=== PATIENT | male | born 1965 | race Caucasian/White ===

== ENCOUNTER 2017-09-14 05:58 | Day surgery (SDC) | payer OTHER ==
[~2017-09-14 05:58] MED LIST: Buffered Lidocaine 0.9% SYRIN* 5 ML/SYR SYRINGE INTRADERM ONE
[2017-09-14] MEDS ORDERED: Dexamethasone IV* 4 MG/ML 1 ML (4 MG) IV SLOW PU ONE (06:00)
[2017-09-14] MEDS ORDERED: Famotidine IV* 10 MG/ML 2 ML (20 mg) IV ONE (06:00)
[2017-09-14] MEDS ORDERED: ceFAZolin 2 GM PREMIX (*) 2 GM/50 ML BAG IVPB ONE (06:14)
[2017-09-14] MEDS ORDERED: Dexamethasone IV* 4 MG/ML 1 ML (4 MG) ONE (06:14)
[2017-09-14] MEDS ORDERED: ceFAZolin 1 GM in Dextrose (*) 1 GM/50 ML BAG IVPB ONE (06:14)
[2017-09-14] MEDS ORDERED: Famotidine IV* 10 MG/ML 2 ML (20 mg) ONE (06:14)
[2017-09-14] MEDS ORDERED: Bupivacaine 0.5% SDV PF* 30ML VIAL ONE (07:12)
[2017-09-14] MEDS ORDERED: EPINEPHRINE 1 MG/ML 1 ML VIAL ONE (07:13)
[2017-09-14] MEDS ORDERED: fentaNYL* 50 MCG/ML 2 ML VIAL (100 MCG VIAL) ONE (07:14)
[2017-09-14] MEDS ORDERED: Midazolam* 1 MG/ML 5 ML VIAL (5 MG) ONE (07:14)
[2017-09-14] MEDS ORDERED: Ketorolac INJ* 30 MG/ML 1 ML VIAL ONE (07:15)
[2017-09-14] MEDS ORDERED: Chloroprocaine 2%* 20 ML VIAL ONE (07:15)
[2017-09-14] MEDS ORDERED: Propofol* 10 MG/ML 20 ML BTL IV PUSH ONE (07:15)
[2017-09-14] MEDS ORDERED: DiMENhydriNATE IV* 50 MG/ML VIAL IV PUSH PRN (08:16)
[2017-09-14] MEDS ORDERED: fentaNYL* 50 MCG/ML 2 ML VIAL (100 MCG VIAL) IV PRN (08:16)
[2017-09-14] MEDS ORDERED: oxyCODONE/Acetamin 5/325 MG* TAB PO PRN (08:16)
[2017-09-14] MEDS ORDERED: Naloxone* 0.4 MG/ML 1 ML VIAL IV PRN (08:16)
[2017-09-14] MEDS ORDERED: Ondansetron INJ* 2 MG/ML VIAL IV PRN (08:16)
[2017-09-14 10:15] VITALS: BP 120/75
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
== END 2017-09-14 10:17 | disposition home or self-care (01) ==
LOC: OR 05:58
PROVIDERS: ATTEND Orthopaedic Surgery
DX: S83.241A Other tear of medial meniscus, current injury, right knee, initial encounter (principal); I10 Essential (primary) hypertension; E78.00 Pure hypercholesterolemia, unspecified; X58.XXXA Exposure to other specified factors, initial encounter
CPT/HCPCS: J0690; J1100; J1885; J2250; J2400; J2704; J3010

== ENCOUNTER 2017-11-13 11:27 | Emergency (ER) | payer BC, OTHER ==
--- OUTSIDE RECORDS SUMMARY | 2017-11-13 11:36 | XMS REPORT ---
:1965 External Reference #:[id number] Author Organization [facility] Address [address] [place] [address] [address] [place] [address] Phone [phone] Care Team Providers Name Role Phone Dipesh Vaughan MD Primary Care Physician Unavailable Payers Type Date Identification Numbers Payment Provider Subscriber Commercial Policy Number: [id number] [facility] Alana Stuart PayID: [id number] [address] [place] [address] Workers Compensation Onset: 2017 Policy Number: State Insurance Alana Novak [id number] [facility] Narciso Group Number: [id number] [address] [place] [address] Group Name: [facility] [address] [id number] PayID: [place] [address] Problems Date Description Provider Status Onset: 05/05/2013 Acute myocardial infarction of Roland Rodriguez M.D., JOANNE, Active anterior wall [facility] Onset: 05/05/2013 Chronic ischemic heart disease Roland Rodriguez M.D., BELL, Active [facility] Onset: 05/05/2013 Hyperlipidemia Roland Rodriguez M.D., BELL, Active [facility] Onset: 05/05/2013 Essential hypertension Roland Rodriguez M.D., BELL, Active [facility] Onset: 06/19/2016 Obesity Roland Rodriguez M.D., BELL, Active [facility] Onset: 08/29/2017 Preoperative cardiovascular Roland Rodriguez M.D., BELL, Active examination [facility] Onset: 01/10/2017 Athscl heart disease of havasupai Roland Rodriguez M.D., FACC, Active coronary artery w/o ang pctrs [facility] Social History Type Date Description Comments Lives With Girlfriend Occupation 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 Use Never Smoked Cigarettes ETOH Use Occasionally consumes alcohol up to 2-5 drinks on days he does drink Smoking Patient has never smoked Recreational Drug Use Denies Drug Use Daily Caffeine Consumes on average 1 cup of regular coffee per day Exercise Type/Frequency Exercises regularly hockey once a week and softball during warmer months Allergies, Adverse Reactions, Alerts Date Description Reaction Status Severity Comments 05/05/2013 NKDA active Medications Medication Date Status Form Strength Qnty SIG Indications Ordering Provider Lisinopril 01/10/ Active Tablets 5mg 90tabs 1 by mouth Roland 2016 in in the , morning M.D., FACC, [facility] Nitrostat 05/19/ Active Tablets 0.4mg 25tabs one sl q5min Roland 2013 Sub up to 3 Stefek, doses as M.D., needed chest FACC, pain, if no [facility] relief call 911 Aspirin / Active Tablets 81mg 100tab 1 po qd Unknown 0000 s Rosuvastatin / Active Tablets 10mg take 1 Unknown Calcium 0000 tablet by mouth at bedtime Naproxen Sodium / Active Tablets 550mg 1 by mouth Unknown 0000 as needed Naproxen 09/25/ Hx Tablets 500mg 60tabs Take 1 S83.241D Colt 2017 - Tablet By F 11/05/ Mouth Twice Anaid, 2017 A Day as MD Needed Aspirin Ec 09/14/ Hx Tablets 325mg 24tabs take 1 tab Colt 2017 - DR by mouth F 10/22/ twice daily Anaid, 2017 x 14 days. MD with food. Oxycodone-Aceta 09/14/ Hx Tablets 5-325mg 15tabs 1-2 tablets Colt minophen 2017 - by mouth F 09/24/ every 4-6 Anaid, 2017 hours as MD needed for pain. Atorvastatin 07/18/ Hx Tablets 80mg 90tabs 1 tab by Roland Calcium 2016 - mouth every fek, 07/08/ day M.D., 2018 FACC, [facility] Clopidogrel 04/30/ Hx Tablets 75mg 90tabs 1 by mouth Roland Bisulfate 2014 - every day - fek, 05/08/ Has Been Off M.D., 2015 Since [facility], Colonoscopy [facility] In Early 05/11 Lisinopril / Hx Tablets 2.5mg 180tab 1 by mouth Roland 0000 - s twice a day shahriar, M.D., 2016 [facility] Atorvastatin / Hx Tablets 40mg 90tabs 1 by mouth Roland Calcium 0000 - every day shahriar, M.D., 2016 [facility] Clopidogrel / Hx Tablets 75mg 90tabs 1 po qd Unknown 0000 - 2014 Nitroglycerin / Hx prn Roland 0000 [facility] 2013 [facility] Vital Signs Date Vital Result Comment 11/06/2017 Height 74 inches 6'2" Weight 288.00 lb Heart Rate 66 /min BP Systolic Sitting 134 mmHg BP Diastolic Sitting 80 mmHg Respiratory Rate 16 /min Pain Level 3 BMI (Body Mass Index) 37.0 kg/m2 10/12/2017 Height 74 inches 6'2" Heart Rate 81 /min BP Systolic 138 mmHg BP Diastolic 80 mmHg Respiratory Rate 18 /min Body Temperature 98.4 F Pain Level 3 09/25/2017 Height 74 inches 6'2" Weight 279.00 lb Heart Rate 68 /min BP Systolic 140 mmHg BP Diastolic 80 mmHg Respiratory Rate 12 /min Pain Level 0 BMI (Body Mass Index) 35.8 kg/m2 08/29/2017 Height 74 inches 6'2" Weight 284.00 lb w/ shoes Heart Rate 82 /min reg BP Systolic Sitting 116 mmHg Lue lg cuff BP Diastolic Sitting 80 mmHg Lue lg cuff BP Systolic Standing 120 mmHg Lue BP Diastolic Standing 80 mmHg Lue Respiratory Rate 16 /min BMI (Body Mass Index) 36.5 kg/m2 Ejection Fraction 50-55% as of 04/2013 echo 08/23/2017 Height 74 inches 6'2" Weight 280.00 lb BP Systolic 122 mmHg BP Diastolic 86 mmHg Respiratory Rate 18 /min Body Temperature 97.4 F Pain Level 3 BMI (Body Mass Index) 35.9 kg/m2 07/09/2017 Height 74 inches 6'2" Weight 280.00 lb BP Systolic 117 mmHg BP Diastolic 82 mmHg Respiratory Rate 16 /min Pain Level 6 BMI (Body Mass Index) 35.9 kg/m2 01/10/2017 Height 74 inches 6'2" Weight 280.38 lb with shoes Heart Rate 56 /min sit and 60 stand BP Systolic Sitting 130 mmHg Rue lg cuff BP Diastolic Sitting 87 mmHg Rue lg cuff BP Systolic Standing 120 mmHg Rue lg cuff BP Diastolic Standing 88 mmHg Rue lg cuff Respiratory Rate 16 /min BMI (Body Mass Index) 36.0 kg/m2 Ejection Fraction 55-60% date 04/28/2013 ECHO 06/19/2016 Height 73.5 inches 6'1.50" Weight 277.00 lb w/ shoes Heart Rate 64 /min reg BP Systolic Sitting 130 mmHg Rue, lg cuff BP Diastolic Sitting 76 mmHg Rue, lg cuff BP Systolic Standing 130 mmHg Rue BP Diastolic Standing 74 mmHg Rue Respiratory Rate 16 /min BMI (Body Mass Index) 36.0 kg/m2 Ejection Fraction 55-60% as of 04/28/2013 echo 05/31/2015 Height 73.5 inches 6'1.50" Weight 244.00 lb Heart Rate 50 /min 56 BP Systolic Sitting 124 mmHg left arm, reg cuff BP Diastolic Sitting 84 mmHg left arm, reg cuff BP Systolic Standing 122 mmHg left arm, reg cuff BP Diastolic Standing 84 mmHg left arm, reg cuff Respiratory Rate 16 /min BMI (Body Mass Index) 31.8 kg/m2 Ejection Fraction 55-60% 04/28/13 06/04/2014 Height 73.5 inches 6'1.50" Weight 267.00 lb Heart Rate 50 /min 60 BP Systolic Sitting 104 mmHg right arm, large cuff BP Diastolic Sitting 64 mmHg right arm, large cuff BP Systolic Standing 110 mmHg right arm, large cuff BP Diastolic Standing 66 mmHg right arm, large cuff Respiratory Rate 16 /min BMI (Body Mass Index) 34.7 kg/m2 11/26/2013 Height 73.5 inches 6'1.50" Weight 256.00 lb Heart Rate 50 /min 62 BP Systolic Sitting 110 mmHg left arm, large cuff BP Diastolic Sitting 78 mmHg left arm, large cuff BP Systolic Standing 108 mmHg left arm, large cuff BP Diastolic Standing 80 mmHg left arm, large cuff Respiratory Rate 16 /min BMI (Body Mass Index) 33.3 kg/m2 05/19/2013 Height 73.5 inches 6'1.50" Weight 264.00 lb Heart Rate 5462 /min BP Systolic Sitting 120 mmHg right arm, large cuff BP Diastolic Sitting 82 mmHg right arm, large cuff BP Systolic Standing 110 mmHg right arm, large cuff BP Diastolic Standing 80 mmHg right arm, large cuff Respiratory Rate 14 /min BMI (Body Mass Index) 34.4 kg/m2 05/05/2013 Height 73.5 inches 6'1.50" Weight 265.00 lb Heart Rate 5660 /min BP Systolic Sitting 118 mmHg left arm, large cuff BP Diastolic Sitting 84 mmHg left arm, large cuff BP Systolic Standing 116 mmHg left arm, large cuff BP Diastolic Standing 84 mmHg left arm, large cuff Respiratory Rate 16 /min BMI (Body Mass Index) 34.5 kg/m2 Results Test Date Test Result H/L Range Note Laboratory test 09/14/2017 Surgical Pathology SEE RESULT BELOW 1 finding Lipid Profile 07/01/2014 Triglycerides 169 mg/dL 2, 3 (Trig/Chol/HDL) Cholesterol 148 mg/dL 2, 4 HDL Cholesterol 46.8 mg/dL 2, 5 LDL Cholesterol 67 mg/dL 2, 6 Laboratory test finding 07/01/2014 Alt 42 U/L 7-52 2, 7 Ast 23 U/L 13-39 2, 8 Lipid Profile (Trig/Chol/HDL) 07/02/2013 Triglycerides 106 mg/dL 9 Cholesterol 113 mg/dL 10 HDL Cholesterol 34.9 mg/dL 11 LDL Cholesterol 57 mg/dL 12 Laboratory test finding 07/02/2013 Alt 31 U/L 7-52 Ast 18 U/L 13-39 1 SEE RESULT BELOW Name: ALANA STUART : [address]: Colt Worrell MD Acct: [id number] Unit: [id number] AGE: 52 Location: OR Re09/14/17 SEX: M Status: JOANNE ROBERSON SPEC: [id number] GILBERTO: 09/14/17-[address] [facility] [address]: Colt Worrell MD REQ: [id number] RECD: 09/14/171055 STATUS: SOUT _ ORDERED: Decal, LEVEL 3 FINAL DIAGNOSIS Loose body, right knee, excision: -- Osteocartilaginous loose body. PRE-OPERATIVE DIAGNOSIS Other tear medial meniscus, current injury, right. GROSS DESCRIPTION The specimen is received in formalin labeled, Loose Body Right Knee, and consists of a 1.5 x 1.1 x 0.6 cm white-pink irregular bone fragment partially surfaced by white- pink fibromembranous tissue. Administrative Assistant Coordinator sections, one cassette following decalcification. Signed by and Reported on: Mariano Perkins MD [id number] END OF REPORT DEPARTMENT OF PATHOLOGY, [address] [place] [address] Mariano Perkins M.D. Director [facility] # [id number] 2 FASTING 3 Desirable <150 Borderline high 150-199 High 200-499 Very High >500 4 Desirable <200 Borderline high 200-239 High >239 5 Low <40 Desirable: 40-60 High: >60 6 Desirable: <100 mg/dL Near Optimal: 100-129 mg/dL Borderline High: 130-159 mg/dL High: 160-189 mg/dL Very High: >189 mg/dL 7 FASTING 8 FASTING 9 Desirable <150 Borderline high 150-199 High 200-499 Very High >500 10 Desirable <200 Borderline high 200-239 High >239 11 Low <40 Desirable: 40-60 High: >60 12 Desirable <100 Near Optimal 100-129 Borderline high 130-159 High 160-189 Very High >189 Procedures Date CPT Code Description Status 09/14/2017 99716 Arthroscopy,Knee,Meniscectomy Medial Or Lateral Completed 09/14/2017 52664 Arthroscopy,Knee,Meniscectomy Medial Or Lateral Completed 08/29/2017 65619 EKG Tracing & Interpretation Completed 07/09/201736629 Inject/Drain Joint/Bursa Major W/O US Completed 07/09/2017 98418 Inject/Drain Joint/Bursa Major W/O US Completed 01/10/2017 43276 EKG Tracing & Interpretation Completed 06/19/2016 96218 EKG Tracing & Interpretation Completed 05/31/2015 11756 EKG Tracing & Interpretation Completed 03/15/2015 55379 Treadmill Interp/Report Only Completed 03/15/2015 19531 Stress Test Supervsn W/Out I/R Completed 06/04/2014 06132 EKG Tracing & Interpretation Completed 11/26/2013 81383 EKG Tracing & Interpretation Completed 05/15/2013 39032 Stress Test Supervsn W/Out I/R Completed 05/15/2013 71184 Treadmill Interp/Report Only Completed 05/05/2013 63666 EKG Tracing & Interpretation Completed 04/28/2013 10481 ECHO Transthorasic Realtime 2D W Doppler & Color Flow Completed Hosp 04/28/2013 75869 EKG, Interpretation Only Completed 04/27/2013 76374 Left Heart Cath. Incl S/I Coronaries, Angio S/I V Gram Completed If Done 04/27/2013 56769 EKG, Interpretation Only Completed 04/27/2013 15462 Revascularization Acute Total/Subtotal Occlusion Completed 11/07/2007 63201 ECHO/Stress Completed 11/07/2007 12767 ECHO/Stress Completed 11/07/2007 50337 Stress Test Completed 11/07/2007 19100 Stress Test Completed 11/07/2007 05224 Stress Test Completed Encounters Type Date Location Provider CPT E/M Dx Office Visit 08/29/2017 [facility] Roland Rodriguez M.D., 74139 Z01.810 3:40p [facility], [facility] I25.10 I10 E78.5 S83.241D Office Visit 08/23/2017 8:00a [facility] 38600 S83.241D Of Antoinette Worrell MD S83.241D Office Visit 07/09/2017 1:30p [facility]t [place] 37735 S83.241A Of Antoinette Worrell MD S83.241A S83.241A Office Visit 01/10/2017 9:40a [facility] Marilin Rodriguez M.D., 65796 E78.5 [facility], [facility] I10 I25.10 Office Visit 06/19/2016 3:20p [facility] Marilin Rodriguez M.D., 50371 I25.10 [facility], [facility] E78.5 I10 E66.9 Office Visit 05/31/2015 3:20p [facility] Marilin Rodriguez M.D., 13408 I25.9 [facility], [facility] E78.5 I10 Office Visit 03/15/2015 12:19p [facility], Jorge Dunne, 02405 R07.9 Hospitalists Clarence I25.10 Office Visit 03/14/2015 12:17p [facility],pc Omar Fuchs M.D. 01471 R07.9 Hospitalists I25.10 Office Visit 06/04/2014 3:00p [facility] Marilin Rodriguez M.D., 21601 414.9 [facility], [facility] 272.4 401.9 Office Visit 11/26/2013 2:45p [facility] Marilin Rodriguez M.D., 18242 414.9 [facility], [facility] 272.4 401.9 Office Visit 05/19/2013 3:30p [facility] Marilin Rodriguez M.D., 02098 414.9 [facility], [facility] 272.4 401.9 Office Visit 05/05/2013 3:30p [facility] Marilin Rodriguez M.D., 30007 410.10 [facility], [facility] 414.9 272.4 401.9 Office Visit 04/29/2013 10:04a [facility] Roland Rodriguez M.D., 58293 410.10 [facility] 414.9 272.4 401.9 Office Visit 04/28/2013 9:24a [facility] Marilin Rodriguez M.D., 50388 410.10 [facility], [facility] 414.9 401.9 Office Visit 04/27/2013 9:23a [facility] Marilin Rodriguez M.D., 05443 786.59 [facility], [facility] 786.05 Plan of Care Future Appointment(s):01/10/2018 3:30 pm - Colt Worrell MD [facility]11/06/2017 - Colt Worrell, MDS83.241D Oth tear of medial meniscus, current injury, r knee, subsNew Therapy:Physical TherapyFollow up:Follow up: 2 kcjqabD99.41 Loose body in knee, right kneeM17.11 Unilateral primary osteoarthritis, right knee
[2017-11-13] MEDS ORDERED: Tetan/Diph/Pertus SYR(Tdap)* 0.5 ML SYR(BOOSTRIX) use SYR IM ONE (11:48)
--- NOTE | 2017-11-13 11:48 | UC ---
Laceration HPI - HPI Summary HPI Summary: 52 yo male presents with laceration to forehead. He tells me that he was trying to exercise and was on a trial run when he tripped and fell forward scraping his forehead against the gravel. No LOC. He did sustain a laceration to his forehead, but states no other injuries. He was ambulatory immediately following. He takes a daily ASA. Unsure date of last tetanus. Denies headache, dizziness, vision changes, or weakness. - History Of Current Complaint Chief Complaint: UCLaceration Stated Complaint: HEAD LAC Time Seen by Provider: 11/13/17 11:48 Hx Obtained From: Patient Laceration Location: Face Mechanism Of Injury: Blunt Trauma Onset/Duration: Sudden Onset Severity: Mild Pain Intensity: 1 Pain Scale Used: 0-10 Numeric - Allergies/Home Medications Allergies/Adverse Reactions: Allergies Allergy/AdvReac Type Severity Reaction Status Date / Time No Known Allergies Allergy Verified 11/13/17 11:44 Home Medications: Home Medications Naproxen Sodium [Naproxen 220 mg] 220 mg PO BID 11/13/17 [History Confirmed ] PMH/Surg Hx/FS Hx/Imm Hx Endocrine History: Dyslipidemia Cardiovascular History: Cardiac Disease, Hypertension Other History Of: Negative For: Anticoagulant Therapy - Surgical History Surgical History: Yes Surgery Procedure, Year, and Place: 2 CARDIAC STENTS - 04/2013. Lt TIB/FIB - W/ [facility], 1990 - Family History Known Family History: Positive: Cardiac Disease, Hypertension - Social History Occupation: Employed Full-time Lives: With Family Alcohol Use: Occasionally Alcohol Amount: 10 per week Substance Use Type: None Smoking Status (MU): Never Smoked Tobacco - Immunization History Most Recent Influenza Vaccination: never Most Recent Tetanus Shot: unknown Most Recent Pneumonia Vaccination: never Review of Systems Constitutional: Negative Skin: Other - Laceration forehead Eyes: Negative ENT: Negative Respiratory: Negative Cardiovascular: Negative Gastrointestinal: Negative Neurovascular: Negative Musculoskeletal: Negative Neurological: Negative Psychological: Negative All Other Systems Reviewed And Are Negative: Yes Physical Exam - Summary Physical Exam Summary: GENERAL: NAD. WDWN. No pain distress. SKIN: 2.5cm linear laceration to left side of forehead. HEENT: Head: No raccoon eyes or cruz's sign. Forehead lac NECK: Supple. Nontender. FROM. CHEST: No accessory muscle use. Breathing comfortably and in no distress. CV: Pulses intact. Brisk cap refill. MSK: FROM in B/L UEs and LEs with symmetric strength. NEURO: A&Ox3. 3 word recall, remote, recent memory, ability to follow 2-step directions, and attention intact. CN II XII grossly intact. [id number]-[id number] are intact. Gait with normal base. Romberg: maintains balance, no pronator drift. Normal speech. No facial drooping. PSYCH: Age appropriate behavior. Triage Information Reviewed: Yes Vital Signs: Initial Vital Signs Temp 97.6 F 11/13/17 11:39 Pulse 62 11/13/17 11:39 Resp 16 11/13/17 11:39 BP 162/111 11/13/17 11:39 Pulse Ox 96 11/13/17 11:39 Vital Signs Reviewed: Yes Laceration Repair - Laceration Repair 1 Description: Linear Laceration Size After Repair: Length (cm) - 2.5 Modified For Repair: No Anesthesia Used: 2.0% Lido Cleansing Completed Via Routine Prep: Yes Closure Material: Sutures - SIX Closure Method: Single Layer Suture Of: Skin Suture Type: Nylon - 6-0 Laceration Course/Dx - Course/Dx Course Of Treatment: A time out was performed, witnessed, and signed. The area was irrigated with 500mL sterile saline. 2mL of 2% lidocaine without epi was administered and good anesthetization was achieved. In the usual sterile fashion , SIX 6-0 nylon interrupted sutures were placed. Pt tolerated procedure well. tdap updated today - Differential Dx - Laceration/Wound Provider Diagnoses: Laceration forehead. Fall Discharge - Sign-Out/Discharge Documenting (check all that apply): Patient Departure All imaging exams completed and their final reports reviewed: No Studies - Discharge Plan Condition: Stable Disposition: HOME Patient Education Materials: Care For Your Stitches (DC), Laceration (ED) Referrals: Dipesh Vaughan MD [Primary Care Provider] - Additional Instructions: If you develop a fever, shortness of breath, chest pain, new or worsening symptoms - please call your PCP or go to the ED. Your blood pressure was high at todays visit. Please see your primary provider within 4 weeks for recheck and re-evaluation. 1) Please keep the area bandaged, clean, dry, and intact for the next 24- 48hours. 2) If you develop a fever, colored or thick discharge, increased pain or swelling - please call your PCP or go to the ED. 3) Please return in 5 days to have your SIX sutures removed. - Billing Disposition and Condition Condition: STABLE Disposition: Home
[2017-11-13] MEDS ORDERED: Lidocaine 2% PF * 5 ML VIAL INJ ONE (12:04)
[2017-11-13 12:31] VITALS: BP 140/75
== END 2017-11-13 12:55 | disposition home or self-care (01) ==
LOC: UCEAST 11:27
DX: S01.81XA Laceration without foreign body of other part of head, initial encounter (principal); W01.0XXA Fall on same level from slipping, tripping and stumbling without subsequent striking against object, initial encounter; Y93.02 Activity, running; Y92.89 Other specified places as the place of occurrence of the external cause; Z23 Encounter for immunization
CPT/HCPCS: 12011; 90715; 99211; G0463

== ENCOUNTER 2018-07-21 20:27 | Observation (INO) | payer BC ==
[2018-07-21] MEDS ORDERED: Aspirin 81 mg CHEW TAB* 81 MG TAB.CHEW PO ONE (21:34)
[2018-07-21] MEDS ORDERED: Lisinopril TAB* 10 MG PO ONE (21:36)
[2018-07-21] MEDS ORDERED: Nitroglycerin TAB 0.4 MG* 0.4 MG TAB SL ONE (21:39)
--- NOTE | 2018-07-21 21:40 | ED ---
HPI Cardiac - HPI Summary HPI Summary: Patient is a 53 y/o M presenting to ED with complaints of chest pain and SOB. Girlfriend, Manuela is present. He reports similar episodes of Sx while playing hockey around two weeks ago. He describes chest pain as a burning sensation at his chest which lasted around 10-15 minutes. He quit skating at the time and Sx went away. 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 Girlfriend notes he ate right before playing hockey around two weeks ago, which is atypical. Today, was playing hockey, Sx returned but appeared to be worse than previously. Sx onset around 1999 today, 07/21/18. When he stopped skating, chest pain had mostly disappeared. In room, he rates pain 7- 8/10 during episode, at present rates 2-3/10. Chest pain is similar to previously, patient describes it as a burning sensation. He notes chest tightness aggravated with deep breaths at present. He notes no "knot" in back at present as he had during previous HI, notes that present episode is somewhat different than when he had HI. No nausea, no calf pain, unknown if he was sweating atypically as he had been playing hockey. PMHx of HI. Patient is prescribed nitroglycerin but has yet to take it. He has not taken his lisinopril today. He never smoked, drinks occasionally, had none today, no substance usage. Patient is on lipitor, statin. FMHx of father due to cardiac disease. PSHx of cardiac stent x2, drug eluting stent, both at [facility]. PSHx of broken tib-fib repair, knee surgery August 2017. Patient is followed by label tacker Dr. Rodriguez. Pulse 67, o2 97, BP 151/101. PCP is Dr. Vaughan. Home medications and allergies are reviewed. Allergies Allergy/AdvReac Type Severity Reaction Status Date / Time No Known Allergies Allergy Verified 11/13/17 11:44 - History of Current Complaint Chief Complaint: EDChestPainROMI Stated Complaint: CHEST PAIN Time Seen by Provider: 07/21/18 21:24 Hx Obtained From: Patient Onset/Duration: Started Hours Ago - today's episode onset 1999, Started Weeks Ago - FIRST EPISODE AROUND TWO WEEKS AGO, Still Present Timing: Constant, Lasting Hours - today's episode onset 1999 Initial Severity: Severe Current Severity: Mild Pain Intensity: 3 Pain Scale Used: 0-10 Numeric - 3/10 in room Character: Burning, Tightness Aggravating Factor(s): Deep Breaths Alleviating Factor(s): Nothing Associated Signs and Symptoms: Positive: Chest Pain, Shortness of Breath, Diaphoresis - unsure. Negative: Nausea, Calf Pain/Swelling - Additional Pertinent History Primary Care Physician: SYLVESTER - Allergy/Home Medications Allergies/Adverse Reactions: Allergies Allergy/AdvReac Type Severity Reaction Status Date / Time No Known Allergies Allergy Verified 11/13/17 11:44 Home Medications: Home Medications Rosuvastatin Calcium 10 mg PO DAILY 07/21/18 [History Confirmed 07/21/18] PMH/Surg Hx/FS Hx/Imm Hx Endocrine/Hematology History: Denies: Hx Anticoagulant Therapy, Hx Blood Disorders, Hx Blood Transfusions, Hx Bone Marrow Disease, Hx Diabetes, Hx Systemic Lupus Erythematosus, Hx Sickle Cell Disease, Hx Thyroid Disease, Hx Anemia, Hx Unexplained Bleeding, Other Endocrine/Hematological Disorders Cardiovascular History: Reports: Hx Angina, Hx Angioplasty, Hx Coronary Artery Disease, Hx Deep Vein Thrombosis, Hx Hypercholesterolemia, Hx Hypertension - on meds, Hx Myocardial Infarction Denies: Hx Aneurysm, Hx Auto Implanted Cardiovert Defib, Hx Cardiac Arrest, Hx Cardiomegaly, Hx Congenital Heart Disease, Hx Congestive Heart Failure, Hx Embolism, Hx Hypotension, Hx Pacemaker/ICD, Hx Peripheral Vascular Disease, Hx Rheumatic Fever, Hx Syncope, Hx Valvular Heart Disease, Other Cardiovascular Problems/Disorders Respiratory History: Denies: Hx Asthma, Hx Chronic Bronchitis, Hx Chronic Obstructive Pulmonary Disease (COPD), Hx Cystic Fibrosis, Hx Lung Cancer, Hx Pleural Effusion, Hx Pneumonia, Hx Pulmonary Edema, Hx Pulmonary Embolism, Hx Seasonal Allergies, Hx Sleep Apnea, Other Respiratory Problems/Disorders GI History: Denies: Hx Cirrhosis, Hx Crohn's Disease, Hx Diverticulosis, Hx Gall Bladder Disease, Hx Gastroesophageal Reflux Disease, Hx Gastrointestinal Bleed, Hx Hiatal Hernia, Hx Irritable Bowel, Hx Jaundice, Hx Obstructive Bowel, Hx Ileostomy, Hx Pyloric Stenosis, Hx Ulcer, Other GI Disorders History: Denies: Hx Acute Renal Failure, Hx Benign Prostatic Hyperplasia, Hx Chronic Renal Failure, Hx Dialysis, Hx Kidney Infection, Hx Kidney Stones, Hx Renal Disease, Other Problems/Disorders Musculoskeletal History: Denies: Hx Arthritis, Hx Back Problems, Hx Bursitis, Hx Congenital Bone Abnormalities, Hx Fibromyalgia, Hx Gout, Hx Orthopedic Injury, Hx Osteoporosis, Hx Scoliosis, Hx Tendonitis, Other Musculoskeletal History Sensory History: Denies: Hx Cataracts, Hx Contacts or Glasses, Hx Eye Injury, Hx Eye Prosthesis, Hx Glaucoma, Hx Legally Blind, Hx Macular Degeneration, Hx Vision Problem, Hx Deafness, Hx Hearing Aid, Hx Hearing Problem, Other Sensory Impairments Opthamlomology History: Denies: Hx Cataracts, Hx Contacts or Glasses, Hx Eye Injury, Hx Eye Prosthesis, Hx Glaucoma, Hx Legally Blind, Hx Macular Degeneration, Hx Vision Problem, Other Sensory Impairments Neurological History: Denies: Hx Dementia, Hx Developmental Delay, Hx Headaches, Hx Migraine, Hx Nerve Disease, Hx Seizures, Hx Spinal Cord Injury, Hx Transient Ischemic Attacks (TIA), Other Neuro Impairments/Disorders Psychiatric History: Denies: Hx Anxiety, Hx Attention Deficit Hyperactivity Disorder, Hx Eating Disorder, Hx Depression, Hx Panic Disorder, Hx Post Traumatic Stress Disorder, Hx Inpatient Treatment, Hx Community Mental Health Tx, Hx Schizophrenia, Hx Bipolar Disorder, Hx Suicide Attempt, Hx of Violent Episodes Against Others, Hx Substance Abuse, Other Psychiatric Issues/Disorders - Surgical History Surgery Procedure, Year, and Place: 2 CARDIAC STENTS - 04/2013. Lt TIB/FIB - W/ [facility], 1990 Hx Anesthesia Reactions: No Infectious Disease History: No Infectious Disease History: Denies: Hx Clostridium Difficile, Hx Hepatitis, Hx Human Immunodeficiency Virus (HIV), Hx of Known/Suspected MRSA, Hx Shingles, Hx Tuberculosis, Hx Known/ Suspected VRE, Hx Known/Suspected VRSA, History Other Infectious Disease, Traveled Outside the [place] in Last 30 Days - Family History Known Family History: Positive: Cardiac Disease, Hypertension - Social History Alcohol Use: Occasionally Alcohol Amount: 10 per week Substance Use Type: Reports: None Smoking Status (MU): Never Smoked Tobacco Review of Systems Positive: Skin Diaphoresis - unsure as he was playing hockey Positive: Chest Pain Positive: Shortness Of Breath Negative: Nausea Musculoskeletal: Other - NEGATIVE - CALF PAIN All Other Systems Reviewed And Are Negative: Yes Physical Exam - Summary Physical Exam Summary: Appearance: Well-appearing, minimal pain distress, well-nourished Skin: Warm, color reflects adequate perfusion, dry Head: Normal Head/Face inspection, atraumatic Eyes: Conjunctiva clear ENT: Normal inspection Neck: Supple, no nodes, no JVD Respiratory: Lungs clear, normal breath sounds, no respiratory distress Cardio: RRR, No murmur, pulses normal, brisk capillary refill Abdomen: Soft, nontender Bowel sounds: Present Musculoskeletal: Strength Intact/ROM intact, no calf tenderness, no edema. Psychological: Normal Neuro: Alert, muscle tone normal, no focal deficit Triage Information Reviewed: Yes Vital Signs On Initial Exam: Initial Vitals Temp Pulse Resp BP Pulse Ox 97.4 F 68 20 172/104 95 07/21/18 20:28 07/21/18 20:28 07/21/18 20:28 07/21/18 20:28 07/21/18 20:28 Vital Signs Reviewed: Yes Diagnostics - Vital Signs Vital Signs Temp Pulse Resp BP Pulse Ox 07/21/18 20:28 97.4 F 68 20 172/104 95 - Laboratory Lab Statement: Any lab studies that have been ordered have been reviewed, and results considered in the medical decision making process. - Radiology CXR Radiology Interpretation Completed By: ED Physician Summary of Radiographic Findings: No acute disease, pending official report. - EKG 2033 Cardiac Rate: NL - rate of 67 BPM EKG Rhythm: Sinus Rhythm Ectopy: None EKG Comparison: No Significant Change - no significant change from 04/29/13. Summary of EKG Findings: EKG showed sinus rhythm with rate of 67 BPM, nml AVIVCT , nml QTc, no ectopy, coved ST segments in leads 2, 3, aVF, no significant change from 04/29/13. 2233 Cardiac Rate: Bradycardia - rate of 59 BPM EKG Rhythm: Sinus Bradycardia ST Segment: Non-Specific Ectopy: None EKG Comparison: No Significant Change - compared to EKG done earlier today Summary of EKG Findings: Second EKG showed sinus bradycardia with rate of 59 BPM , nml AVIVCT, nml QTc, no ectopy, coved ST segments in leads 2, 3, aVF, no significant change compared to EKG done earlier today 07/21/18 Re-Evaluation - Re-Evaluation First Eval Re-Evaluation Time: 22:15 Comment: Discussed admission with patient, he is agreeable with this. Disposition - Course Course Of Treatment: Patient is a 53 y/o M presenting to ED with complaints of chest pain and SOB. Girlfriend, Manuela is present. He reports similar episodes of Sx while playing hockey around two weeks ago. He describes chest pain as a burning sensation at his chest which lasted around 10-15 minutes. He quit skating at the time and Sx went away. 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 Girlfriend notes he ate right before playing hockey around two weeks ago, which is atypical. Today, was playing hockey, Sx returned but appeared to be worse than previously. Sx onset around 1999 today, 07/21/18. When he stopped skating, chest pain had mostly disappeared. In room, he rates pain 7-8/10 during episode, at present rates 2-3/ 10. Chest pain is similar to previously, patient describes it as a burning sensation. He notes chest tightness aggravated with deep breaths at present. He notes no "knot" in back at present as he had during previous HI, notes that present episode is somewhat different than when he had HI. No nausea, no calf pain, unknown if he was sweating atypically as he had been playing hockey. PMHx of HI. Patient is prescribed nitroglycerin but has yet to take it. He has not taken his lisinopril today. He never smoked, drinks occasionally, had none today , no substance usage. Patient is on lipitor, statin. FMHx of father due to cardiac disease. PSHx of cardiac stent x2, drug eluting stent, both at [facility]. PSHx of broken tib-fib repair, knee surgery August 2017. Patient is followed by label tacker Dr. Rodriguez. On physical exam, patient is well appearing, minimal pain distress. EKG showed sinus rhythm with rate of 67 BPM, nml AVIVCT, nml QTc , no ectopy, coved ST segments in leads 2, 3, aVF, no significant change from 04/29/13. CXR showed NAD. Labs showed MCH 32, creatinine 1.19, glucose 101, lactic acid 0.7, trop 0.03. During ED course, patient received prinivil 5 mg PO ED ONCE, ASA 324 mg PO ONCE. Patient's case was discussed with Dr. Flores, Dr. Flores accepts for admission. Patient is agreeable with this. Second EKG showed sinus bradycardia with rate of 59 BPM, nml AVIVCT, nml QTc, no ectopy, coved ST segments in leads 2, 3, aVF, no significant change from 04/29/13. - Diagnoses Provider Diagnoses: Chest pain, Unstable angina - Physician Notifications Discussed Care Of Patient With: Rupa Flores Time Discussed With Above Provider: 21:59 Instructed by Provider To: Other - 2158 - Patient's case was discussed with Dr. Flores, Dr. Flores accepts for admission. Discharge - Sign-Out/Discharge Documenting (check all that apply): Patient Departure - admit Patient Received Moderate/Deep Sedation with Procedure: No - Discharge Plan Condition: Good Disposition: ADMITTED TO [facility] Referrals: Dipesh Vaughan MD [Primary Care Provider] - - Attestation Statements Document Initiated by Scribe: Yes Documenting Scribe: SÁNCHEZ ALMAZAN Provider For Whom Scribe is Documenting (Include Credential): SYDNIE BORGES MD Scribe Attestation: SÁNCHEZ Palmer, scribed for SYDNIE BORGES MD on 07/21/18 at 2251. Status of Scribe Document: Ready
[2018-07-21 21:42] LABS: ABS Basophils 0.1 10^3/ul (0-0.2); ABS Eosinophils 0.4 10^3/ul (0-0.6); ABS Lymphocytes 1.8 10^3/ul (1.0-4.8); ABS Monocytes 0.6 10^3/ul (0-0.8); ABS Neutrophils 6.8 10^3/ul (1.5-7.7); ABS Nucleated RBC 0 10^3/ul; Eosinophil % 3.9 %; Hematocrit 46 % (36-46); Hemoglobin 15.9 g/dL (14.0-18.0); Lymphocyte % 18.9 %; Mean Corpuscular HGB Conc 34 g/dL (31-36); Mean Corpuscular Hemoglobin 32 pg (27-31); Mean Corpuscular Volume 92 fL (80-94); Mean Platelet Volume 7.4 fL (7.4-10.4); Nucleated Red Blood Cells % 0.2; Platelet Count 194 10^3/uL (150-450); Red Blood Count 5.03 10^6 /uL (4.18-5.48); Red Cell Distribution Width 14 % (10.5-15); White Blood Count 9.7 10^3/uL (3.5-10.8)
[2018-07-21 21:57] LABS: Albumin 4.6 g/dL (3.2-5.2); Albumin/Globulin Ratio 2.1 (1-3); BUN/Creatinine Ratio 10.1 (8-20); Calcium 9.3 mg/dL (8.6-10.3); EGFR African American 76.8 (>60); EGFR Non-African American 63.5 (>60); Globulin 2.2 g/dL (2-4); Potassium 3.9 mmol/L (3.5-5.0); Total Bilirubin 0.4 mg/dL (0.2-1.0); Total Protein 6.8 g/dL (6.4-8.9)
[2018-07-21 21:58] LABS: Troponin I 0.03 ng/mL (<0.04)
[2018-07-21] MEDS ORDERED: Acetaminophen TAB* 325 MG PO PRN (22:08)
[2018-07-21] MEDS ORDERED: Lisinopril TAB* 5 MG PO ONE (22:19)
[2018-07-21] MEDS ORDERED: Enoxaparin(*) 40 MG/0.4 ML SYR SUBCUT SCH (23:00)
[2018-07-21] MEDS ORDERED: Nitroglycerin TAB 0.4 MG* 0.4 MG TAB SL PRN (23:15)
[2018-07-21] MEDS ORDERED: Atorvastatin* 40 MG TAB PO ONE (23:16)
[2018-07-22 00:31] LABS: Troponin I 0.05 ng/mL (<0.04)
--- NOTE | 2018-07-22 02:56 | HP ---
CC: Dr. Vaughan* HISTORY AND PHYSICAL: DATE OF ADMISSION: 07/21/18 PROVIDER: Jacqueline Sánchez NP. PRIMARY CARE PROVIDER: Dr. Vaughan. ATTENDING PHYSICIAN WHILE IN THE HOSPITAL: Dr. Rupa Flores* (dictated by Jacqueline Sánchez NP). CHIEF COMPLAINT: Chest pain. HISTORY OF PRESENT ILLNESS: Mr. Stuart is a 53-year-old male with a past medical history of hypertension, ME with stenting in 2013, hyperlipidemia, who presented to the emergency room with complaints of chest tightness. The patient reports that he was playing ice hockey this evening and developed chest tightness and indigestion, reports that it was in the center of his chest, lasted about 20 minutes. The patient reports that during this episode of chest pain, he felt hot. He removed his helmet. He reports that he was diaphoretic at that time and is unsure if it was related to his chest pain. He also reports that 2 weeks prior, again when playing hockey, he developed an episode of chest pain, again lasting 20 minutes. At that time, he thought it was related to drinking ice water. The patient had an ME in 2013, and due to his concern of 2 episodes of chest pain in 2 weeks, he presented for further evaluation. 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 The patient denied any nausea or vomiting associated with the pain. Denied any radiation. He did report that the pain felt similar to the pain he had when he had his ME in 2013, though it did not radiate to the back this time. In 2014, the pain radiated to his back. Due to his chest pain, we are asked to see and evaluate him for admission. PAST MEDICAL HISTORY: 1. Hypertension. 2. ME with stenting in 2014. 3. Hyperlipidemia. PAST SURGICAL HISTORY: 1. Cardiac catheterization in 2013. 2. Knee surgery. 3. Tib-fib repair with ed placement. HOME MEDICATIONS: 1. Lisinopril 5 mg p.o. daily. 2. Rosuvastatin 10 mg p.o. daily. 3. Aspirin 81 mg p.o. daily. ALLERGIES: No known drug allergies. FAMILY HISTORY: Father had an ME and at the age of 50. No reported history of diabetes or cancers. SOCIAL HISTORY: Denies any tobacco, alcohol, or illicit drug use. 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 His significant other Manuela and his brother are his surrogate decision makers. He is a full code. REVIEW OF SYSTEMS: All pertinent positives were mentioned in the HPI. All others were negative. PHYSICAL EXAMINATION GENERAL: At this time, Mr. Stuart is a 53-year-old male he is alert and oriented, sitting on the stretcher in the emergency room. He does not appear to be in any acute distress. He is chest pain free at this time. VITAL SIGNS: Blood pressure 132/106, heart rate is 62, respirations are 23, O2 saturation is 97%, temperature is 97.4. HEENT: Head is atraumatic, normocephalic. Eyes: EOMs are intact. Sclerae anicteric, not pale. Oral mucosa appeared to be moist. NECK: Supple. LUNGS: Clear to auscultation bilaterally. No wheezes, rales, or rhonchi. CARDIAC: S1, S2. Regular rate and rhythm. No murmurs, rubs, or gallops. ABDOMEN: Soft and nontender. Bowel sounds are present x4. EXTREMITIES: He is able to move all 4 extremities. No clubbing or cyanosis. Pedal pulses are +2 bilaterally. Skin is intact. NEUROLOGIC: He is awake, alert, oriented x3. Speech is clear. Thought process intact. There are no gross focal deficits. PSYCH: The patient is alert and oriented x3. He is calm and cooperative. LABORATORY DATA AND DIAGNOSTIC STUDIES: WBCs are 9.7, RBCs 5.03, hemoglobin 15.9, hematocrit is 46, platelet count is 194. Sodium 139, potassium 3.9, chloride 106, carbon dioxide of 26, anion gap of 7, BUN is 12, creatinine is 1.19, glucose is 101, lactic acid 0.7, calcium 9.3, AST 26, ALT 43, alkaline phosphatase is 62. Initial troponin was 0.03, second troponin is due at 2359. EKG: Initial EKG at [address] elevation in lead 2 and lead 3, avf and P-wave inversions in 2, 3, aVF, V2, V3, 4, 5, and 6. The P-wave inversions appeared to be consistent with prior EKGs. He does have some chronic minimal ST elevation in 2, 3, and aVF in prior EKGs but it does appear to be more pronounced. Repeat EKG did show ST segments in leads 2, 3 and AVF closer to baseline Chest x-ray is pending. ASSESSMENT AND PLAN: Mr. Stuart is a 53-year-old male with a past medical history significant for coronary artery disease with stent placement in 2013 after a myocardial infarction, hypertension, hyperlipidemia, who presented to the emergency room after he felt chest pain while playing ice hockey this evening. He is currently chest pain free. He will be admitted under observation for, 1. Chest pain. We will admit him to rule out acute coronary syndrome. He does have some ST changes in leads 2, 3, and aVF. I did contact Dr. Madrigal and had him review the EKGs as well, who has recommended that the patient have a stress test. The patient received aspirin 324 mg in the emergency room and lisinopril as he was hypertensive on admission. He took his rosuvastatin today 10 mg. We will continue to trend his troponin q.3 hours x2. He will get a repeat EKG in the a.m. I will place him on telemetry monitoring overnight. The patient was instructed to inform nursing staff with any development of further chest pain. His DEDRA score is 4 giving him a 20% risk of all-cause mortality at 14 days of recurrent ischemia requiring urgent revascularization. I will order a nuclear exercise stress test for tomorrow. Should his troponin elevate, we will give him a dose of full- strength Lovenox, and could consider a consultation to Cardiology. I will hold off on a beta heber at this time as the patient heart rate is in the mid 50's consistently. 2. Hypertension. I will continue him on his lisinopril as previously prescribed. 3. Hyperlipidemia. He will continue on rosuvastatin as previously prescribed. 4. Code status: He is full code. 5. Fluid, electrolytes, and nutrition: He can have heart healthy, decaf okay diet. 6. DVT prophylaxis: I will give him Lovenox subcu. TIME SPENT: Time spent on this admission was approximately 60 minutes, greater than half that time was spent at the bedside reviewing events leading thus far to his hospitalization, performing my physical exam, and reviewing my plan of care. I have discussed this with my attending, Dr. Rupa Flores, and she is in agreement with my plan. JACQUELINE SÁNCHEZ, PROSTHETICS ASSISTANT [id number]/[facility] #: [id number] [facility]
[2018-07-22 03:24] LABS: ABS Basophils 0.1 10^3/ul (0-0.2); ABS Eosinophils 0.3 10^3/ul (0-0.6); ABS Lymphocytes 2.2 10^3/ul (1.0-4.8); ABS Monocytes 0.5 10^3/ul (0-0.8); ABS Neutrophils 4.8 10^3/ul (1.5-7.7); ABS Nucleated RBC 0 10^3/ul; Eosinophil % 4.2 %; Hematocrit 44 % (36-46); Hemoglobin 14.8 g/dL (14.0-18.0); Lymphocyte % 27.7 %; Mean Corpuscular HGB Conc 34 g/dL (31-36); Mean Corpuscular Hemoglobin 32 pg (27-31); Mean Corpuscular Volume 93 fL (80-94); Mean Platelet Volume 7.7 fL (7.4-10.4); Nucleated Red Blood Cells % 0; Platelet Count 182 10^3/uL (150-450); Red Blood Count 4.71 10^6 /uL (4.18-5.48); Red Cell Distribution Width 14 % (10.5-15); White Blood Count 7.8 10^3/uL (3.5-10.8)
[2018-07-22 03:39] LABS: Anion Gap 6 mmol/L (2-11); BUN/Creatinine Ratio 11.4 (8-20); Blood Urea Nitrogen 12 mg/dL (6-24); CO2 Carbon Dioxide 28 mmol/L (22-32); Calcium 8.7 mg/dL (8.6-10.3); Chloride 106 mmol/L (101-111); Cholesterol 134 mg/dL; EGFR African American 88.7 (>60); EGFR Non-African American 73.3 (>60); Glucose 101 mg/dL (70-100); HDL Cholesterol 42.4 mg/dL; LDL Cholesterol 72 mg/dL; Magnesium 2.1 mg/dL (1.9-2.7); Potassium 3.8 mmol/L (3.5-5.0); Sodium 140 mmol/L (135-145); Triglycerides 98 mg/dL
[2018-07-22 03:57] LABS: Troponin I 0.07 ng/mL (<0.04)
--- NOTE | 2018-07-22 04:03 | PN ---
Hospitalist Progress Note Date of Service: 07/22/18 Pt admitted with unstable angina, trops continue to increase, no active CP at rest, will start heparin gtt for now and continue to trend
[2018-07-22] MEDS ORDERED: Heparin VIAL(*) 5000 UNITS/ML VIAL (FIVE THOUSAND) IV PRN (04:13)
[2018-07-22] MEDS ORDERED: Heparin DRIP 25,000 UNITS(*) 25,000 UNITS/500 ML BAG IV SCH (04:15)
[2018-07-22 07:33] LABS: Troponin I 0.05 ng/mL (<0.04)
--- NOTE | 2018-07-22 08:06 | PN ---
Subjective Date of Service: 07/22/18 Interval History: Pt is feeling well this AM. He has no CP at rest. He got up and walked to the bathroom this AM and did not develop any CP. No SOB. No other symptoms. He states the pain now is somewhat similar to what he experienced in the past. Objective Active Medications: Acetaminophen (Tylenol Tab*) 650 mg PO Q4H PRN PRN Reason: FEVER/PAIN Aspirin (Aspirin Ec Tab*) 81 mg PO QAM [facility] Heparin Sodium (Porcine) (Heparin Vial(*)) 0 units IV .PER PROTOCOL PRN PRN Reason: BOLUSES Last Admin: 07/22/18 04:48 Dose: 4,000 units Heparin Sodium/Dextrose (Heparin Drip 25,000 Units(*)) 25,000 units in 500 mls @ 0 mls/hr IV PER RATE [facility]; Protocol Last Admin: 07/22/18 04:48 Dose: 20 mls/hr Lisinopril (Prinivil Tab*) 5 mg PO QAM [facility] Nitroglycerin (Nitroglycerin Tab 0.4 Mg*) 0.4 mg SL Q5M PRN PRN Reason: PAIN - CHEST Vital Signs - 8 hr 07/22/18 07/22/18 07/22/18 00:06 00:36 00:38 Temperature 97.8 F Pulse Rate 62 59 60 Respiratory 15 14 18 Rate Blood Pressure 125/93 123/83 123/83 (mmHg) O2 Sat by Pulse 94 91 94 Oximetry 07/22/18 07/22/18 01:14 04:17 Temperature 97.8 F 97.4 F Pulse Rate 62 56 Respiratory 18 16 Rate Blood Pressure 126/75 110/66 (mmHg) O2 Sat by Pulse 96 94 Oximetry Oxygen Devices in Use Now: None Appearance: Middle aged male lying flat in bed, NAD Eyes: No Scleral Icterus Ears/Nose/Mouth/Throat: Mucous Membranes Moist Respiratory: Symmetrical Chest Expansion and Respiratory Effort, Clear to Auscultation Cardiovascular: NL Sounds; No Murmurs; No JVD, RRR, No Edema Abdominal: NL Sounds; No Tenderness; No Distention Extremities: No Clubbing, Cyanosis Skin: No Rash or Ulcers Neurological: Alert and Oriented x 3 Result Diagrams: 07/22/18 03:06 07/22/18 03:06 Assess/Plan/Problems-Billing Mr Stuart is a 53 yo M who has a h/o MS in 2014 s/p PCI who was playing hockey last evening when he developed about 20min of centrally located CP. He had an episode similar a couple weeks ago while playing hockey. - Patient Problems (1) Unstable angina Current Visit: Yes Status: Acute Code(s): I20.0 - UNSTABLE ANGINA SNOMED Code(s): 2519170 Comment: Pt with CP only with marked exertion (playing hockey) but he did have mildly elevated tropoinins up to 0.07. EKG with ST elevation in leads II, III, aVF but stable and similar to EKGs from 2014. Will plan on exercise nuclear stress test. Continue ASA, heparin drip, lipitor and lisinopril. Not on BBlocker as HR typically in the 60's. Await results of stress test. (2) HTN (hypertension) Current Visit: Yes Status: Acute Code(s): I10 - ESSENTIAL (PRIMARY) HYPERTENSION SNOMED Code(s): 84894087 Comment: BP is under good control. Continue lisinopril. (3) DVT prophylaxis Current Visit: Yes Status: Acute Code(s): XHJ8633 - SNOMED Code(s): 779770643 Comment: Heparin drip (4) Full code status Current Visit: Yes Status: Acute Code(s): Z78.9 - OTHER SPECIFIED HEALTH STATUS SNOMED Code(s): 583345276
[2018-07-22 08:16] VITALS: BP 119/74
[2018-07-22] MEDS ORDERED: Lisinopril TAB* 5 MG PO SCH (09:00)
[2018-07-22] MEDS ORDERED: Aspirin EC TAB* 81 MG TAB.EC PO SCH (09:00)
[2018-07-22] MEDS ORDERED: Atorvastatin* 20 MG TAB PO SCH (09:00)
[2018-07-22] MEDS ORDERED: Regadenoson* 0.4 MG/5 ML SYRINGE ONE (10:42)
--- NOTE | 2018-07-22 21:11 | CONS ---
CC: Dipesh Vaughan MD * CARDIAC CONSULTATION: DATE OF CONSULT: 07/22/18 INDICATION FOR CONSULTATION: Chest pain, coronary artery disease. HISTORY OF PRESENT ILLNESS: The patient is a 53-year-old gentleman with a history of coronary artery disease, history of stenting to his LAD in 2013, who comes to the hospital because of chest pain. The patient states that 2 weeks ago, he was playing ice hockey and had some chest pain. He sat down on the bench and these symptoms went away. 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 Last night, on Sunday night, he was playing hockey again. Again, had chest pain, felt burning in his chest, sat down on the bench. It about 20 minutes and then the symptoms started to go away. He decided to go the emergency room. On arrival to the emergency room, his EKG showed ectopic rhythm with minimal ST segment elevation. His initial troponin level was 0.03. His peak troponin level was 0.07. He had no chest pain overnight. The patient underwent a chemical nuclear stress test today, which demonstrated normal LV function, normal TID of 1.19. His nuclear images, which I reviewed personally, did have a small area of ischemia to his inferior wall that improved with rest images; however, his attenuation corrected images were completely normal, no evidence of ischemia or infarction. Again in speaking with the patient today, he has no symptoms. PAST MEDICAL HISTORY: Significant for coronary artery disease. He had a myocardial infarction in 2013. At that time, he received a stent to his LAD. At that time, he also had a 70% stenosis to his diagonal vessel of his LAD and 30% stenosis to his right coronary artery. Other past medical history: Obesity, hypertension, hyperlipidemia. MEDICATIONS: Outpatient medications: 1. Atorvastatin 80 mg a day. 2. Aspirin 81 mg a day. 3. Lisinopril 2.5 mg a day. 4. Nitroglycerin as needed. ALLERGIES: No known drug allergies. 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 He lives with his girlfriend. Denies tobacco use. He denies significant alcohol use. Drinks 1 cup of coffee a day. He exercises regularly. FAMILY HISTORY: No family history of early coronary artery disease. REVIEW OF SYSTEMS: Negative for fevers and chills. Negative for changes in bowel or bladder habits. Negative for changes in weight. PHYSICAL EXAM: Height is 6 feet 2 inches, weight 283 pounds. Temperature 97.8 , heart rate is 62, blood pressure 119/74, oxygen saturation 95% on room air. Sclerae are anicteric. Oropharynx is pink without erythema. Carotids are 2+ without bruits. JVD is normal. Thyroid is normal. Cardiac Exam: S1, S2 without any murmurs, rubs, or gallops. Lungs are clear to auscultation. Extremities show no edema. He has 2+ pulses throughout. The patient is awake, alert, and oriented. He moves all 4 extremities equally. LABORATORY STUDIES: CBC within normal limits. Chemistries within normal limits. Troponins as described above. EKG as described above. IMPRESSION: This is a 53-year-old gentleman with a history of known coronary artery disease. He was admitted to the hospital because of exertion-related chest pain. He did have a minimally elevated troponin level. His nuclear images show evidence of reversible perfusion in the inferior wall, but this is negated by the attenuation correction images. For now, my recommendation is that the patient continue on his current medications. The patient will be discharged on his aspirin, EULALIO inhibitor, and statin medication. The patient will be started on Plavix 75 mg a day. The patient will be started on lisinopril 12.5 mg b.i.d. I will see the patient in followup in 2 to 3 weeks. The patient was instructed that if he had any further chest pain, to contact my office or go directly to the emergency room. [id number]/[facility] #: [id number] KATYA
--- NOTE | 2018-07-22 21:11 | DS ---
CC: Dr. Love; Dr. Vaughan * DISCHARGE SUMMARY: DATE OF ADMISSION: 07/21/18 DATE OF DISCHARGE: 07/22/18 PRIMARY CARE PROVIDER: Dr. Vaughan. ORTHOPEDICS PEDIATRIC PHYSICIAN: Dr. Love. PRINCIPAL DIAGNOSIS: Chest pain - unclear if representing acute coronary syndrome. SECONDARY DIAGNOSES: 1. Coronary artery disease. 2. Hypertension. 3. Hyperlipidemia. DISCHARGE MEDICATIONS: 1. Lisinopril 5 mg p.o. daily. 2. Crestor 10 mg p.o. daily. 3. Aspirin 81 mg p.o. daily. 4. Nitroglycerin 0.4 mg SL q.5 minutes p.r.n. chest pain. 5. Metoprolol tartrate 12.5 mg p.o. twice daily (new). 6. Plavix 75 mg p.o. daily (new). HOSPITAL COURSE: Mr. Stuart is a 53-year-old male with a known history of coronary artery disease, status post stenting in 2013, who presented to the emergency room on 07/21/18 with complaints of exertional chest pain. The patient was playing hockey approximately 2 weeks ago and had an episode of chest pain that lasted for about 20 minutes. He rested and the pain went away. He had been doing fine until the day of admission when again he was playing hockey and again developed chest pain. He presented to the ER and was initially found to have a troponin of 0.03. This increased and peaked at 0.07. The patient underwent a Lexiscan test, which revealed normal wall motion and myocardial thickening with left ventricular ejection fraction estimated to be 59 %. Images demonstrated mild decreased density in the anterior wall on both post pharmacologic stress and resting images, which appeared to be unchanged. There is a [id number] sized area of decreased activity in the inferior wall on the post pharmacologic stress images, which improves on the resting images, most consistent with ischemic change. Because of this, Dr. Love was contacted. He saw the patient in consultation. He felt that the potential ischemic change and abnormalities read by the radiologist improved with attenuation and therefore it is unclear if this truly represent ischemia or not. Dr. Love has asked the patient be started on Plavix 75 mg daily in addition to metoprolol tartrate 12.5 mg p.o. twice daily. The patient is to follow up with Dr. Love in his office in 3 to 4 weeks. The patient has been instructed to not play hockey until he sees Dr. Love in followup. The patient has also been recommended to return to the emergency room if he has any further chest pain. FOLLOWUP CONCERNS: The patient is being discharged home today, 07/22/18. ACTIVITY LEVEL: As tolerated. DIET: Low fat. CONDITION ON DISCHARGE: Stable. TIME SPENT: Thirty-five minutes was spent discharging this patient. [id number]/[facility] #: [id number] KATYA
== END 2018-07-22 14:19 | disposition home or self-care (01) ==
LOC: ED 20:27 → MEDTELE 22:08
PROVIDERS: ADMIT Internal Medicine; ATTEND Hospitalist
DX: R07.9 Chest pain, unspecified (principal); I25.10 Atherosclerotic heart disease of native coronary artery without angina pectoris; I10 Essential (primary) hypertension; E78.5 Hyperlipidemia, unspecified; Z79.82 Long term (current) use of aspirin; R06.02 Shortness of breath; Z86.718 Personal history of other venous thrombosis and embolism; I25.2 Old myocardial infarction; Z95.5 Presence of coronary angioplasty implant and graft
CPT/HCPCS: 36415; 71046; 78452; 80048; 80053; 80061; 83605; 83735; 84484; 85025; 85730; 93005; 93017; 96365; 96372; 99284; A9270-GY; A9502; G0378; J1644; J1650; J2785

== ENCOUNTER 2018-08-12 22:09 | Emergency (ER) | payer BC ==
--- OUTSIDE RECORDS SUMMARY | 2018-08-12 22:23 | XMS REPORT | Continuity of Care Document ---
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 Onset: 11/06/2011 Late effect of open wound of head, neck Enmanuel Vera M.D. Onset: 2011 AND/OR trunk Coronary arteriosclerosis Dipesh Vaughan M.D. 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 Tablets Nitrostat 1 sl as needed, Unknown 0.4mg Tablets repeat every 5 Sub minutes up to three tabs, call 911 Aspirin Ec 1 by mouth every Unknown 81mg Tablets day Metoprolol Tartrate take one half Unknown 25mg tablet by mouth Tablets twice a day Plavix 1 by mouth every Unknown 75mg Tablets day Lisinopril 1 by mouth every Unknown 5mg Tablets day History Medications Cefuroxime Axetil 1 by mouth twice 20tabs J06.9 Dipesh Sainz 06/02/2015 - 500mg a day Clarence Vaughan 2015 Tablets No Active Medications Unknown 10/01/2014 - 10/01/2014 Note For Work please excuse 1units 906.0 Enmanuel Sainz 03/01/2012 - from work 02/28/12 Clarence Vera 10/01/2014 through 03/03/12 for medical reasons Ciclopirox Olamine Apply to affected 30gm 110.5 [place] 02/07/2012 - 0.77% area bid (r arm, [facility], 10/01/2014 Cream r axilla) Afnp-C Work Excuse unable to work Will Viveros 03/28/2010 - this week Clarence Pitt 03/28/2010 Levaquin 1 po qd 10tabs 490 Dipesh Sainz 03/28/2010 - 500mg Tablets Clarence Vaughan 04/07/2010 Zithromax Z-Michael as directed 1Pack Will Viveros 02/23/2010 - 250mg Clarence Pitt 03/28/2010 Tablets Work Excuse unable to work Will Viveros 02/23/2010 - for the past 2 Clarence Pitt 03/28/2010 days can return to work tommorrow Patellar Repositioning wear as directed 1units 844.9 Dipesh Sainz 04/06/2008 - Sleeve Clarence Vaughan 04/16/2008 Treadmill Stress Test dx: left Dipesh Sainz 11/07/2007 - shoulder, chest Clarence Vaughan 11/08/2007 pain Ecasa 1 PO qd 30units Dipesh Sainz 04/11/2005 - 81mg Clarence Vaughan 11/06/2007 Zetia 1 PO qd 30tabs Dipesh Sainz 04/11/2005 - 10mg Tablets Clarence Vaughan 11/06/2007 Work Recommendations No Running Or Edin T. 01/02/2005 - Physical Exertion Clarence Diehl 03/30/2005 For One Week Due To Asthmatic Bronchitis Albuterol Inhaler 2 Puffq 3-4 HRS 1unsimone Edin Weathers 07/15/2002 - prn Clarence Diehl 03/30/2005 Z-Pack as directed 1unsimone Edin Weathers 07/15/2002 - Clarence Diehl 03/30/2005 Augmentin 1 bid 10units Selvin Rowley 07/25/2001 - 500mg Clarence Anderson 07/30/2001 Return To Work may return to Dipesh Sainz 06/28/2001 - work 04/17/08 Clarence Vaughan 04/17/2008 Silvadene Apply bid prn To 50gm Edin Weathers 06/24/2001 - Cream Burn Clarence Diehl 07/15/2002 Work Excuse Unable To Work Edin Weathers 06/24/2001 - 06/24-06/26 Due To Clarence Diehl 07/15/2002 Leg Injury. May Return 06/27/01. Albuterol Inhaler 2 Puffq 3-4 HRS 1units Helga Kee, 08/02/1999 - prn [employer] 08/12/1999 Duratuss 1 PO bid prn Head 20units Helga Kee, 08/02/1999 - Congestion [employer] 08/12/1999 Clopidogrel Bisulfate 1 by mouth every Unknown - 75mg day 06/02/2015 Tablets Lisinopril 1 po bid Unknown - 2.5mg Tablets 07/29/2018 Atorvastatin Calcium 1 po qd Unknown - 40mg 08/02/2016 Tablets Immunizations Description No Information Available Vital Signs Date Vital Result Comment 07/29/2018 2:23pm BP Systolic 104 mmHg BP Diastolic 64 mmHg Heart Rate 64 /min Body Temperature 98.1 F Height 74.5 inches 6'2.50" Weight 278.00 lb BMI (Body Mass Index) 35.2 kg/m2 09/13/2017 12:59pm BP Systolic 120 mmHg BP Diastolic 80 mmHg Heart Rate 68 /min Body Temperature 97.9 F Respiratory Rate 16 /min Height 74.5 inches 6'2.50" Weight 282.00 lb BMI (Body Mass Index) 35.7 kg/m2 05/21/2017 3:04pm BP Systolic 118 mmHg BP Diastolic 80 mmHg Heart Rate 80 /min Body Temperature 98.2 F Respiratory Rate 16 /min Height 74.5 inches 6'2.50" 05/09/2017 8:41am BP Systolic 132 mmHg BP Diastolic 82 mmHg Heart Rate 72 /min Body Temperature 98.7 F Respiratory Rate 16 /min Height 74.5 inches 6'2.50" Weight 285.00 lb BMI (Body Mass Index) 36.1 kg/m2 08/02/2016 4:03pm BP Systolic 110 mmHg BP Diastolic 74 mmHg Heart Rate 62 /min Body Temperature 98.8 F Respiratory Rate 14 /min Height 74.5 inches 6'2.50" Weight 274.00 lb BMI (Body Mass Index) 34.7 kg/m2 06/02/2015 1:21pm BP Systolic 112 mmHg BP Diastolic 80 mmHg Heart Rate 52 /min Body Temperature 98.3 F Respiratory Rate 12 /min O2 % BldC Oximetry 97 % Height 74.5 inches 6'2.50" Weight 242.00 lb BMI (Body Mass Index) 30.7 kg/m2 01/11/2015 10:25am BP Systolic 110 mmHg BP Diastolic 70 mmHg Heart Rate 60 /min Body Temperature 97.3 F Respiratory Rate 12 /min Height 74.5 inches 6'2.50" Weight 268.00 lb BMI (Body Mass Index) 33.9 kg/m2 10/01/2014 3:43pm BP Systolic 114 mmHg BP Diastolic 64 mmHg Heart Rate 60 /min Body Temperature 98.0 F Respiratory Rate 12 /min Height 74.5 inches 6'2.50" Weight 263.00 lb BMI (Body Mass Index) 33.3 kg/m2 03/01/2012 10:34am BP Systolic 140 mmHg BP Diastolic 100 mmHg Heart Rate 64 /min Body Temperature 98.2 F Height 74 inches 6'2" Weight 280.00 lb BMI (Body Mass Index) 35.9 kg/m2 02/07/2012 4:46pm BP Systolic 140 mmHg BP Diastolic 72 mmHg Heart Rate 68 /min Body Temperature 98.4 F Height 74 inches 6'2" Weight 277.00 lb BMI (Body Mass Index) 35.6 kg/m2 11/06/2011 1:27pm BP Systolic 134 mmHg BP Diastolic 90 mmHg Heart Rate 64 /min Body Temperature 98.2 F Respiratory Rate 12 /min Height 74 inches 6'2" Weight 275.00 lb BMI (Body Mass Index) 35.3 kg/m2 03/28/2010 3:43pm BP Systolic 126 mmHg BP Diastolic 80 mmHg Heart Rate 52 /min Body Temperature 97.2 F Respiratory Rate 16 /min O2 % BldC Oximetry 97 % Height 74 inches 6'2" Weight 266.00 lb BMI (Body Mass Index) 34.1 kg/m2 02/23/2010 1:13pm BP Systolic 138 mmHg BP Diastolic 80 mmHg Heart Rate 60 /min Body Temperature 976.0 F Weight 270.00 lb 04/16/2008 1:57pm BP Systolic 142 mmHg BP Diastolic 78 mmHg Heart Rate 60 /min Body Temperature 97.3 F Respiratory Rate 16 /min Weight 270.00 lb 04/06/2008 2:53pm BP Systolic 130 mmHg BP Diastolic 80 mmHg Heart Rate 60 /min Body Temperature 97.7 F Respiratory Rate 20 /min Height 6.20 inches 0'6.20" Weight 267.00 lb BMI (Body Mass Index) 4883.0 kg/m2 11/06/2007 11:20am BP Systolic 120 mmHg BP Diastolic 88 mmHg Heart Rate 52 /min Body Temperature 97.2 F Respiratory Rate 16 /min Height 6.20 inches 0'6.20" Weight 267.00 lb BMI (Body Mass Index) 4883.0 kg/m2 04/11/2005 1:02pm BP Systolic 124 mmHg BP Diastolic 70 mmHg Heart Rate 60 /min Height 6.20 inches 0'6.20" Weight 263.00 lb BMI (Body Mass Index) 4809.8 kg/m2 03/30/2005 2:00pm BP Systolic 112 mmHg BP Diastolic 70 mmHg Heart Rate 68 /min Height 6.20 inches 0'6.20" Weight 263.00 lb BMI (Body Mass Index) 4809.8 kg/m2 01/02/2005 2:54pm BP Systolic 128 mmHg BP Diastolic 76 mmHg Heart Rate 56 /min Body Temperature 97.6 F Height 6.20 inches 0'6.20" Weight 272.00 lb BMI (Body Mass Index) 4974.4 kg/m2 12/25/2002 6:15pm BP Systolic 120 mmHg BP Diastolic 74 mmHg Heart Rate 68 /min Body Temperature 97.1 F Height 6.20 inches 0'6.20" Weight 260.00 lb BMI (Body Mass Index) 4754.9 kg/m2 07/15/2002 11:00am BP Systolic 138 mmHg BP Diastolic 80 mmHg Heart Rate 60 /min Body Temperature 97.8 F Height 6.20 inches 0'6.20" Weight 246.00 lb BMI (Body Mass Index) 4803.8 kg/m2 07/25/2001 3:30pm BP Systolic 140 mmHg BP Diastolic 80 mmHg Body Temperature 98.2 F Height 6.20 inches 0'6.20" Weight 263.00 lb BMI (Body Mass Index) 5135.8 kg/m2 06/28/2001 11:02am BP Systolic 114 mmHg BP Diastolic 74 mmHg Body Temperature 98.1 F Height 6.20 inches 0'6.20" Weight 258.00 lb BMI (Body Mass Index) 5038.2 kg/m2 06/24/2001 3:40pm BP Systolic 112 mmHg BP Diastolic 64 mmHg Body Temperature 97.6 F Height 6.20 inches 0'6.20" Weight 258.00 lb BMI (Body Mass Index) 5038.2 kg/m2 08/02/1999 1:59pm BP Systolic 118 mmHg BP Diastolic 78 mmHg Body Temperature 97.3 F Height 6.20 inches 0'6.20" Weight 250.00 lb BMI (Body Mass Index) 4881.9 kg/m2 01/16/1997 12:00am BP Systolic 140 mmHg BP Diastolic 90 mmHg Body Temperature 97.0 F Height 6.20 inches 0'6.20" Weight 245.00 lb Results Test Date Facility Test Result H/L Range Note CBC Auto Diff 07/21/[place] [facility] Blood Count 9.7 10^3/uL N 3.5-10.8 Red Blood Count 5.03 10^6/uL N 4.18-5.48 Hemoglobin 15.9 g/dL N 14.0-18.0 Hematocrit 46 % N 36-46 Mean Corpuscular Volume 92 fL N 80-94 Mean Corpuscular Hemoglobin 32 pg High 27-31 Mean Corpuscular HGB Conc 34 g/dL N 31-36 Red Cell Distribution Width 14 % N 10.5-15 Platelet Count 194 10^3/uL N 150-450 Mean Platelet Volume 7.4 fL N 7.4-10.4 Abs Neutrophils 6.8 10^3/uL N 1.5-7.7 Abs Lymphocytes 1.8 10^3/uL N 1.0-4.8 Abs Monocytes 0.6 10^3/uL N 0-0.8 Abs Eosinophils 0.4 10^3/uL N 0-0.6 Abs Basophils 0.1 10^3/uL N 0-0.2 Abs Nucleated RBC 0 10^3/uL Granulocyte % 70.0 % Lymphocyte % 18.9 % Monocyte % 6.6 % Eosinophil % 3.9 % Basophil % 0.6 % Nucleated Red Blood Cells % 0.2 Laboratory test finding 07/21/2018 [facility] [place] Lactic Acid 0.7 mmol/L N 0.5-2.0 1 Comp Metabolic Panel 07/21/2018 [facility] [place] Sodium 139 mmol/L N 135-145 Potassium 3.9 mmol/L N 3.5-5.0 Chloride 106 mmol/L N 101-111 Co2 Carbon Dioxide 26 mmol/L N 22-32 Anion Gap 7 mmol/L N 2-11 Glucose 101 mg/dL High 70-100 Blood Urea Nitrogen 12 mg/dL N 6-24 Creatinine 1.19 mg/dL High 0.67-1.17 BUN/Creatinine Ratio 10.1 N 8-20 Calcium 9.3 mg/dL N 8.6-10.3 Total Protein 6.8 g/dL N 6.4-8.9 Albumin 4.6 g/dL N 3.2-5.2 Globulin 2.2 g/dL N 2-4 Albumin/Globulin Ratio 2.1 N 1-3 Total Bilirubin 0.40 mg/dL N 0.2-1.0 Alkaline Phosphatase 62 U/L N 34-104 Alt 43 U/L N 7-52 Ast 26 U/L N 13-39 Egfr Non- 63.5 >60 Egfr 76.8 >60 2 Laboratory test 07/21/2018 [facility] [place]roponin I 0.03 ng/mL <0.04 3 finding Lipid Profile 07/23/2017 [facility](fma) Cholesterol 163 mg/dL 120- 200 Triglycerides 333 mg/dL High 30-200 HDL Cholesterol 48 mg/dL 30-70 LDL (Calculated) 48 CALC 0-129 VLDL Cholesterol 67 mg/dL High 0-50 HDL Risk Factor 3.4 CALC 0.0-4.4 Comprehensive Metabolic 07/23/2017 Marty Mccarty(a) Sodium 136 mEq/L 134-149 Prof Potassium 3.9 mEq/L 3.6-5.5 Chloride 98 mEq/L 94-112 Carbon Dioxide 30 mEq/L 21-32 Glucose 121 mg/dL High 70-105 4 BUN 14 mg/dL 6-26 Creatinine 1.1 mg/dL 0.6-1.4 BUN/Creat Ratio 12.7 CALC 8.0-36.0 Calcium 9.1 mg/dL 8.6-10.2 Total Protein 6.5 g/dL 6.4-8.3 Albumin 4.5 g/dL 3.8-5.5 Globulin 2.0 g/dL 2.0-4.8 A/G Ratio 2.3 CALC 0.6-2.3 Alk. Phosphatase 68 U/L 22-95 Alt (SGPT) 58 U/L High 7-35 5 Ast (Sgot) 29 U/L 5-34 Total Bilirubin 0.4 mg/dL 0.2-1.3 GFR Non- >60 ml/min/1.73m^ >=60 GFR >60 ml/min/1.73m^ >=60 Laboratory test finding 07/23/2017 [facility] Flora(a) PSA 0.5 ng/mL 0.0 -4.0 LDL, Direct 79 mg/dL 0-130 Laboratory test 07/23/2017 [facility] HCV AB neg negative finding (607)- - Laboratory test 07/23/2017 [facility] Hemoglobin A1c 6.0 % High 4.1- 5.7 finding (607)- - ([facility]) Lipid Profile 06/30/2016 [facility] Triglycerides 181 mg/dL N 6 (Trig/Chol/HDL) Cholesterol 211 mg/dL N 7 HDL Cholesterol 42.1 mg/dL N 8 LDL Cholesterol 133 mg/dL N 9 Laboratory test finding 06/30/2016 [facility] Ast (Sgot) 26 U/L N 13-39 10 Alt 44 U/L N 7-52 11 Laboratory 06/02/2015 [facility] Prostate-Specific Ag, 0.5 0.0-4.0 12, [address] [facility] Serum ng/[place] [address] (607)- - Lipid Panel 06/02/2015 [facility] Cholesterol, Total [phone] [facility] mg/[place] [address] (607)- - Triglycerides 188 mg/dL High 0-149 HDL Cholesterol 38 mg/dL Low >39 14 VLDL Cholesterol Darrell 38 mg/dL 5-40 LDL Cholesterol Calc 90 mg/dL 0-99 Comment: TNP Comp. Metabolic 06/02/2015 [facility] Glucose, Serum 93 mg/dL 65-99 Panel (14) [address] [place] [address] (607)- - BUN 9 mg/dL 6-24 Creatinine, Serum 0.85 mg/dL 0.76-1.27 eGFR If NonAfricn Am 101 mL/min/1.73 >59 eGFR If Africn Am 117 mL/min/1.73 >59 BUN/Creatinine Ratio 11 9-20 Sodium, Serum 147 mmol/L High 134-144 Potassium, Serum 4.3 mmol/L 3.5-5.2 Chloride, Serum 106 mmol/L 97-108 Carbon Dioxide, Total 25 mmol/L 18-29 Calcium, Serum 9.3 mg/dL 8.7-10.2 Protein, Total, Serum 6.5 g/dL 6.0-8.5 Albumin, Serum 4.3 g/dL 3.5-5.5 Globulin, Total 2.2 g/dL 1.5-4.5 A/G Ratio 2.0 1.1-2.5 Bilirubin, Total 0.4 mg/dL 0.0-1.2 Alkaline Phosphatase, S 80 IU/L 39-117 Ast (Sgot) 16 IU/L 0-40 Alt (SGPT) 24 IU/L 0-44 Laboratory test 05/04/2015 [facility] Pathology SEE RESULT BELOW 15 finding Laboratory test 03/14/2015 [facility] Troponin I 0.00 ng/mL N <0.03 16 finding CBC Auto Diff 03/14/2015 [facility] White Blood Count 7.3 10^3/uL N 3.5-10.8 Red Blood Count 5.05 10^6/uL N 4.0-5.4 Hemoglobin 16.1 g/dL N 14.0-18.0 Hematocrit 49 % N 42-52 Mean Corpuscular Volume 97 fL High 80-94 Mean Corpuscular Hemoglobin 32 pg High 27-31 Mean Corpuscular HGB Conc 33 g/dL N 31-36 Red Cell Distribution Width 13 % N 10.5-15 Platelet Count 190 10^3/uL N 150-450 Mean Platelet Volume 8 um3 N 7.4-10.4 Abs Neutrophils 4.7 10^3/uL N 1.5-7.7 Abs Lymphocytes 1.7 10^3/uL N 1.0-4.8 Abs Monocytes 0.5 10^3/uL N 0-0.8 Abs Eosinophils 0.3 10^3/uL N 0-0.6 Abs Basophils 0 10^3/uL N 0-0.2 Abs Nucleated RBC 0 10^3/uL N Granulocyte % 64.9 % N 38-83 Lymphocyte % 22.9 % Low 25-47 Monocyte % 7.0 % N 1-9 Eosinophil % 4.6 % N 0-6 Basophil % 0.6 % N 0-2 Nucleated Red Blood Cells % 0 N Comp Metabolic Panel 03/14/2015 [facility] Sodium 141 mmol/L N 133-145 Potassium 3.7 mmol/L N 3.5-5.0 Chloride 104 mmol/L N 101-111 Co2 Carbon Dioxide 29 mmol/L N 22-32 Anion Gap 8 mmol/L N 2-11 Glucose 95 mg/dL N 70-100 Blood Urea Nitrogen 13 mg/dL N 6-24 Creatinine 1.01 mg/dL N 0.67-1.17 BUN/Creatinine Ratio 12.9 N 8-20 Calcium 9.3 mg/dL N 8.6-10.3 Total Protein 7.1 g/dL N 6.4-8.9 Albumin 4.6 g/dL N 3.2-5.2 Globulin 2.5 g/dL N 2-4 Albumin/Globulin Ratio 1.8 N 1-3 Total Bilirubin 0.60 mg/dL N 0.2-1.0 Alkaline Phosphatase 60 U/L N 34-104 Alt 50 U/L N 7-52 Ast 35 U/L N 13-39 Egfr Non- 77.9 N >60 Egfr 100.2 N >60 17 Lipid Profile 01/11/2015 [facility] Bibiana(fma) Cholesterol 170 mg/dL 120- 200 Triglycerides 180 mg/dL 30-200 HDL Cholesterol 54 mg/dL 30-70 LDL (Calculated) 80 CALC 0-129 VLDL Cholesterol 36 mg/dL 0-50 HDL Risk Factor 3.1 CALC 0.0-4.4 Comprehensive Metabolic 01/11/2015 [facility] Bibiana(fma) Sodium 138 mEq/L 134-149 Prof Potassium 3.8 mEq/L 3.6-5.5 Chloride 99 mEq/L 94-112 Carbon Dioxide 25 mEq/L 21-32 Glucose 132 mg/dL High 70-105 18 BUN 12 mg/dL 6-26 Creatinine 1.0 mg/dL 0.6-1.4 BUN/Creat Ratio 12.0 CALC 8.0-36.0 Calcium 10.0 mg/dL 8.6-10.2 Total Protein 7.0 g/dL 6.4-8.3 Albumin 4.7 g/dL 3.8-5.5 Globulin 2.3 g/dL 2.0-4.8 A/G Ratio 2.0 CALC 0.6-2.3 Alk. Phosphatase 60 U/L 22-95 Alt (SGPT) 54 U/L High 7-35 Ast (Sgot) 29 U/L 5-34 Total Bilirubin 0.9 mg/dL 0.2-1.3 GFR Non- >60 ml/min/1.73m^ >=60 GFR >60 ml/min/1.73m^ >=60 Lipid Profile (Trig/Chol/HDL) 07/01/2014 [facility] Triglycerides 169 mg/dL N 19, 20 Cholesterol 148 mg/dL N 21 HDL Cholesterol 46.8 mg/dL N 22 LDL Cholesterol 67 mg/dL N 23 Laboratory test finding 07/01/2014 [facility] Alt 42 U/L N 7-52 24 Ast 23 U/L N 13-39 25 Lipid Profile (Trig/Chol/HDL) 07/02/2013 [facility] Triglycerides 106 mg/dL 26 Cholesterol 113 mg/dL 27 HDL Cholesterol 34.9 mg/dL 28 LDL Cholesterol 57 mg/dL 29 Laboratory test finding 07/02/2013 [facility] Alt 31 U/L 7-52 Ast 18 U/L 13-39 CBC Auto Diff 04/27/2013 [facility] White Blood Count 9.6 10^3/uL 4.8-10.8 Red Blood Count 5.18 10^6/uL 4.0-5.4 Hemoglobin 16.0 g/dL 14.0-18.0 Hematocrit 48 % 42-52 Mean Corpuscular Volume 93 fL 80-94 Mean Corpuscular Hemoglobin 31 pg 27-31 Mean Corpuscular HGB Conc 33 g/dL 31-36 Red Cell Distribution Width 14 % 10.5-15 Platelet Count 208 10^3/uL 150-450 Mean Platelet Volume 8 um3 7.4-10.4 Abs Neutrophils 7.3 10^3/uL 1.5-7.7 Abs Lymphocytes 1.4 10^3/uL 1.0-4.8 Abs Monocytes 0.6 10^3/uL 0-0.8 Abs Eosinophils 0.2 10^3/uL 0-0.6 Abs Basophils 0.1 10^3/uL 0-0.2 Abs Nucleated RBC 0 10^3/uL Granulocyte % 76.2 % 38-83 Lymphocyte % 14.9 % Low 25-47 Monocyte % 6.3 % 1-9 Eosinophil % 2.0 % 0-6 Basophil % 0.6 % 0-2 Nucleated Red Blood Cells % 0 Comp Metabolic Panel 04/27/2013 [facility] Sodium 142 mmol/L 133-145 Potassium 3.9 mmol/L 3.5-5.0 Chloride 105 mmol/L 101-111 Co2 Carbon Dioxide 29.0 mmol/L 22-32 Anion Gap 8.0 mmol/L 2-11 Glucose 102 mg/dL High 70-100 Blood Urea Nitrogen 10 mg/dL 6-24 Creatinine 1.20 mg/dL 0.50-1.40 BUN/Creatinine Ratio 8.3 8-20 Calcium 9.3 mg/dL 8.1-9.9 Total Protein 7.1 g/dL 6.2-8.1 Albumin 4.3 g/dL 3.6-5.4 Globulin 2.8 g/dL 2-4 Albumin/Globulin Ratio 1.5 1-3 Total Bilirubin 0.7 mg/dL 0.4-1.5 Alkaline Phosphatase 60 U/L 30-110 Alt 45 U/L 14-54 Ast 29 U/L 12-42 Egfr Non- 64.4 >60 Egfr 82.8 >60 30 Laboratory test 04/27/2013 [facility] Troponin I 0.07 ng/mL High 0-0.06 31 finding Laboratory test 04/27/2013 [facility] D Dimer < 200 Less Than 32 finding Quantitative ng/mL 230 Lipid Panel 11/06/2011 [facility] Cholesterol, 190 mg/dL <200 [address] [facility] Total [place], [place] [id number] [phone] Triglycerides 305 mg/dL Abnormal <150 HDL Cholesterol 37 mg/dL Low 40-60 Chol/HDL Cholesterol 5.1 Abnormal 34 LDL Cholesterol, Calc. 92 mg/dL 35 LDL/HDL Cholesterol 2.5 36 Comprehensive Metabolic 11/06/2011 [facility] Glucose 89 mg/dL 70-100 [address] [place], [place] [id number] [phone] BUN 12 mg/dL 5-21 Creatinine, Serum 0.99 mg/dL 0.60-1.30 Sodium 139 mmol/L 136-146 Potassium 4.0 mmol/L 3.5-5.3 Chloride 102 mmol/L 98-110 Carbon Dioxide 29 mmol/L 20-32 Albumin 4.6 g/dL 3.5-4.7 Protein, Total 7.4 g/dL 6.4-8.3 Calcium 9.6 mg/dL 8.4-10.4 Alkaline Phosphatase 78 U/L 10-118 Sgot (Ast) 23 U/L 3-40 SGPT (Alt) 41 U/L 7-50 Bilirubin, Total 0.30 mg/dL 0.30-1.20 Urinalysis W/ Micro 11/06/2011 [facility] Urine Color YELLOW Yellow (CX) [address] [place] [address] [phone] Urine Appearance CLEAR Clear Urine Specific [place] 1.012 1.005-1.030 Urine Leukocytes NEGATIVE Negative Urine Nitrite NEGATIVE Negative Urine PH 6.0 5.0-8.0 Urine Protein NEGATIVE mg/dL Negative Urine Glucose NEGATIVE mg/dL Negative Urine Ketones NEGATIVE mg/dL Negative Urine Urobilinogen NORMAL mg/dL NORMALor<1 Urine Bilirubin NEGATIVE Negative Urine Occult Blood NEGATIVE Negative Microscopic, 11/06/2011 [facility] Microscopic, NOT INDICATED Reflex [address] [facility] [place] [place] [address] [phone] Egfr (Calculated) 11/06/2011 [facility] Estimated GFR (CALCULATED) [address] [place] [phone] Egfr >60 37 Egfr, -Sammar[place] >60 38 Laboratory test 03/28/2010 [facility] Madeline This test 39 finding Pertussis was de <SEE NOTE> Lipid Profile 10/28/2007 [facility] Cholesterol, 215 mg/dL High 120-20 40, [address] [facility] Total 0 [place], [place] [id number] [phone] HDL Cholesterol 39 mg/dL Low 40-60 LDL Cholesterol, Calc. 132 mg/dL AB <130 42 Triglycerides 220 mg/dL AB 43 LDL/HDL Cholesterol 3.4 44 Chol/HDL Cholesterol 5.5 AB 45 Lipid 07/10/2005 [facility] Cholesterol, 181 mg/dL 120-200 46, 47 Profile [address] [facility] [place] [address] [phone] HDL Cholesterol 39 mg/dL Low 40-60 LDL Cholesterol, Calc. 105 mg/dL AB <130 48 Triglycerides 187 mg/dL AB 49 LDL/HDL Cholesterol 2.7 50 Chol/HDL Cholesterol 4.6 51 Lipid 03/30/2005 [facility] Cholesterol, 245 mg/dL High 120-200 52, 53 Profile [address] [facility] [place] [address] [phone] HDL Cholesterol 47 mg/dL 40-60 LDL Cholesterol, Calc. 156 mg/dL AB <130 54 Triglycerides 209 mg/dL AB 55 LDL/HDL Cholesterol 3.3 56 Chol/HDL Cholesterol 5.2 AB 57 Laboratory test 03/30/2005 [facility] CRP (High 1.33 0.00-3.00 58 finding [address] [facility] Sensitivity) mg/[place] [address] [phone] Homocysteine 17.84 umol/L High 3.70-13.90 Comprehensive 12/31/2002 [facility] Glucose 89 mg/dL 61.0 - 110.0 Metabolic [address] [place] [address] [phone] BUN 14 mg/dL 5.0 - 21.0 Creatinine, Serum 1.0 mg/dL 0.6 - 1.5 Sodium 142 mmol/L 135.0 - 146.0 Potassium 4.1 mmol/L 3.5 - 5.3 Chloride 106 mmol/L 98.0 - 108.0 Carbon Dioxide 27 mmol/L 23.0 - 33.0 Albumin 4.3 g/dL 3.8 - 4.6 Protein, Total 7.0 g/dL 6.2 - 8.0 Calcium 9.2 mg/dL 8.3 - 10.3 Alkaline Phosphatase 76 U/L 45.0 - 120.0 Sgot (Ast) 31 U/L 9.0 - 43.0 SGPT (Alt) 69 U/L High 11.0 - 51.0 Bilirubin, Total 0.50 mg/dL 0.2 - 1.3 Lipid Profile 12/31/2002 [facility] Triglycerides 182 mg/dL 23.0 - [address] [place] [id number] [phone] Cholesterol, Total 231 mg/dL High 120.0 - 200.0 59 HDL Cholesterol 41 mg/dL 40.0 - 60.0 LDL Cholesterol, Calc. 154 mg/dL AB <130 60 LDL/HDL Cholesterol 3.8 AB 61 Chol/HDL Cholesterol 5.6 AB 62 Comp Metabolic [place] 10/12/2001 [facility] Sodium 140 mmol/L 135-145 Potassium 4.5 3.5-5.0 Chloride 101 mmol/L 95-108 Co2 26.5 21-33 Glucose 86 mg/dL 70-105 BUN 12 6-22 Creatinine 1.1 mg/dL 0.5-1.4 BUN/Creatinin Ratio 10.9 8-20 Calcium 9.5 mg/dL 8.7-10.2 Total Protein 7.0 GM/DL 6.2-8.1 Albumin 4.4 3.6-5.4 Globulin 2.6 2-4 Albumin / Globulin Ratio 1.7 1-3 Bilirubin, Total 0.6 mg/dL 0.1-1.0 Alkaline Phosphatase 93 U/L 39-117 Alt (SGPT) 66 High 1-40 Ast (Sgot) 25 1-34 Laboratory test finding 10/12/2001 [facility] [place] Uric Acid 8.8 mg/dL High 2.4-7.0 CBC With Manual Diff [place] [place] 10[place]12/2001 [facility] [place] WBC 11.6 High 4.8-10.8 RBC 5.05 4.6-6.2 Hemoglobin 15.7 g/dL 14.0-18.0 Hematocrit 45 % 42-52 Mean Corpuscular Vol 90 80-94 Mean Corpuscular Hemaglobin 31 27-31 Mean Corpuscular Hemo Concen 35 32-36 RDW 12 10.5-15 Platelets 255 CUMM 150-450 Mean Platelet Volume 8.9 7.4-10.4 Poly [place] [facility] [place] 76 38-83 Band - 0-8 Lymph [place] [facility] [place] 23 5-47 [place] [facility] [place] - 0-13 Eos [place] [facility] [place] 1 0-6 Atypical Lymph - 0-6 Morphology NORMAL Basophils - 1 [facility] Severe Sepsis and Septic Shock Management Bundle Measure requires all lactic acids initially measuring >2.0 mmol/L be repeated. 2 Because ethnic data is not always readily available, this report includes an eGFR for both -Americans and non- Americans. The National Kidney Disease Education Program (NKDEP) does not endorse the use of the MDRD equation for patients that are not between the ages of 18 and 70, are , have extremes of body size, muscle mass, or nutritional status, or are non- or non-. According to the [employer], irrespective of diagnosis, the stage of the disease is based on the level of kidney function: Stage Description GFR(mL/min/1.73 m(2)) 1 Kidney damage with normal or decreased GFR 90 2 Kidney damage with mild decrease in GFR 60-89 3 Moderate decrease in GFR 30-59 4 Severe decrease in GFR 15-29 5 Kidney failure <15 (or dialysis) 3 Troponin-I testing on Plasma Separator Tubes (PST) has a known false positive rate of 0.20-0.40%. All positive troponins reflex immediately to secondary confirmatory testing. Using the [employer] DxI 800 Access Immunoassay systems, the 99th percentile upper reference limit was demonstrated to be < 0.03 ng/mL. 4 consistent w/ previous results 5 consistent w/ previous results 6 Desirable <150 Borderline high 150-199 High 200-499 Very High >500 7 Desirable <200 Borderline high 200-239 High >239 8 Low <40 Desirable: 40-60 High: >60 9 Desirable: <100 mg/dL Near Optimal: 100-129 mg/dL Borderline High: 130-159 mg/dL High: 160-189 mg/dL Very High: >189 mg/dL 10 FASTING 1SST [id number] FASTING 1SST [id number] 1 sst 13 Shanna ECLIA methodology. According to the [employer], Serum PSA should decrease and remain at undetectable levels after radical prostatectomy. The AUA defines biochemical recurrence as an initial PSA value 0.2 ng/mL or greater followed by a subsequent confirmatory PSA value 0.2 ng/mL or greater. Values obtained with different assay methods or kits cannot be used interchangeably. Results cannot be interpreted as absolute evidence of the presence or absence of malignant disease. 14 According to ATP-III Guidelines, HDL-C >59 mg/dL is considered a negative risk factor for CHD. 15 SEE RESULT BELOW Name: ALANA STUART : [address]: Rachid Servin MD Acct: [id number] Unit: [id number] AGE: 49 Location: ENDO Re05/04/15 SEX: M Status: REG REF SPEC: [id number] GILBERTO: 05/04/15- SUBM DR: Rachid Servin MD REQ: [id number] RECD: 05/04/15-1216 STATUS: FINESSE MCKEON DR: Dipesh Vaughan MD _ ORDERED: LEVEL IV FINAL DIAGNOSIS Colon, distal sigmoid, biopsy: -- Tubular adenoma. -- No high grade dysplasia or malignancy. CLINICAL HISTORY Usual bowel habits, QD. POST-OPERATIVE DIAGNOSIS Colonoscopy to cecum with ease, fair prep. One polyp. Conclusion/Plan: 1. Sigmoid polyp - five years. GROSS DESCRIPTION The specimen is received in formalin labeled, Polyp at Distal Sigmoid, and consists of a 0.7 x 0.6 x 0.3 cm beavers-pink polypoid soft tissue fragment, which is inked, trisected and submitted entirely in one cassette. Signed (signature on file) Mariano Perkins MD 1126 END OF REPORT * ML=Testing performed at Main Lab DEPARTMENT OF PATHOLOGY, [address] [place] [address] Mariano Perkins M.D. Director [facility] # [id number] 16 Reference Range and Interpretation: TnI (ng/mL) Interpretation Less Than 0.03 ng/mL Not supportive of diagnosis of RI 0.03 - 0.50 ng/mL Indeterminate: suggest serial studies if clinically indicated. Greater than 0.5 ng/mL Consistent with diagnosis of RI 17 Because ethnic data is not always readily available, this report includes an eGFR for both -Americans and non- Americans. The National Kidney Disease Education Program (NKDEP) does not endorse the use of the MDRD equation for patients that are not between the ages of 18 and 70, are , have extremes of body size, muscle mass, or nutritional status, or are non- or non-. According to the National Kidney Foundation, irrespective of diagnosis, the stage of the disease is based on the level of kidney function: Stage Description GFR(mL/min/1.73 m(2)) 1 Kidney damage with normal or decreased GFR 90 2 Kidney damage with mild decrease in GFR 60-89 3 Moderate decrease in GFR 30-59 4 Severe decrease in GFR 15-29 5 Kidney failure <15 (or dialysis) 18 NON-FASTING 19 FASTING 20 Desirable <150 Borderline high 150-199 High 200-499 Very High >500 21 Desirable <200 Borderline high 200-239 High >239 22 Low <40 Desirable: 40-60 High: >60 23 Desirable: <100 mg/dL Near Optimal: 100-129 mg/dL Borderline High: 130-159 mg/dL High: 160-189 mg/dL Very High: >189 mg/dL 24 FASTING 25 FASTING 26 Desirable <150 Borderline high 150-199 High 200-499 Very High >500 27 Desirable <200 Borderline high 200-239 High >239 28 Low <40 Desirable: 40-60 High: >60 29 Desirable <100 Near Optimal 100-129 Borderline high 130-159 High 160-189 Very High >189 30 Because ethnic data is not always readily available, this report includes an eGFR for both -Americans and non- Americans. The National Kidney Disease Education Program (NKDEP) does not endorse the use of the MDRD equation for patients that are not between the ages of 18 and 70, are , have extremes of body size, muscle mass, or nutritional status, or are non- or non-. According to the National Kidney Foundation, irrespective of diagnosis, the stage of the disease is based on the level of kidney function: Stage Description GFR(mL/min/1.73 m(2)) 1 Kidney damage with normal or decreased GFR 90 2 Kidney damage with mild decrease in GFR 60-89 3 Moderate decrease in GFR 30-59 4 Severe decrease in GFR 15-29 5 Kidney failure <15 (or dialysis) 31 Reference Range and Interpretation: TnI (ng/mL) Interpretation Less Than 0.06 ng/mL Not supportive of diagnosis of RI 0.06 - 0.50 ng/mL Indeterminate: suggest serial studies if clinically indicated. Greater than 0.5 ng/mL Consistent with diagnosis of RI 32 Please note: The following may produce a false positive D Dimer test: - Rheumatoid factor greater than 60 IU/ml - Plasma hemoglobin greater than 0.05 gm/dl - Bilirubin greater than 50 mg/dl - Lipids greater than 1000 mg/dl - FDP greater than 20 ug/ml 33 1SST; 1STERILE CUP WITH URINE 34 CHOL/HDL Risk Ratio Levels MALE FEMALE 1/2 X Average 3.4 3.3 Average 5.0 4.4 2 X Average 9.5 7.0 3 X Average 24.0 11.0 35 Optimal under 100 mg/dl Near or above Optimal 100 - 129 mg/dl Borderline High 130 - 159 mg/dl High 160 - 189 mg/dl Very High above 190 mg/dl 36 LDL/HDL Risk Ratio Levels MALE FEMALE 1/2 X Average 1.0 1.5 Average 3.6 3.2 2 X Average 6.3 5.0 3 X Average 8.0 6.1 37 >59 mL/min/1.73m2 38 >59 mL/min/1.73m2 Note: Persistent reduction for 3 months or more in an eGFR <60 mL/min/1.73m2 defines CKD. Patients with eGFR values >=60 mL/min/1.73m2 may also have CKD if evidence of persistent proteinuria is present. Additional information may be found at www.kidney.org/professionals/kdoqi. 39 This test was developed and its performance characteristics determined by [facility], [facility]. This test has not been cleared or approved by the U.S. Food and Drug Administration. Test performed by: [employer] [address] [place], [place] [address] Negative for Bordetella pertussis/parapertussis DNA 40 FASTING; ONE SST TUBE 41 Cholesterol Risk Levels (NIH) Recommended: under 200 mg/dl Borderline : 200-239 mg/dl High Risk : Above 240 mg/dl 42 The National Cholesterol Education Program recommends the following ranges for LDL Cholesterol: Optimal under 100 mg/dl Near or above Optimal 100 - 129 mg/dl Borderline High 130 - 159 mg/dl High 160 - 189 mg/dl Very High above 190 mg/dl 43 Triglyceride Risk Levels: Normal : <150 mg/dl Borderline : 150-199 mg/dl High : 200-499 mg/dl Very High : >500 mg/dl 44 LDL/HDL Risk Ratio Levels MALE FEMALE 1/2 X Average 1.00 1.47 Average 3.55 3.22 2 X Average 6.25 5.03 3 X Average 7.99 6.14 45 CHOL/HDL Risk Ratio Levels MALE FEMALE 1/2 X Average 3.4 3.3 Average 5.0 4.4 2 X Average 9.5 7.0 3 X Average 24.0 11.0 46 FASTING; 1 SST 47 Cholesterol Risk Levels (NIH) Recommended: under 200 mg/dl Borderline : 200-239 mg/dl High Risk : Above 240 mg/dl . 48 The National Cholesterol Education Program recommends the following ranges for LDL Cholesterol: Optimal under 100 mg/dl Near or above Optimal 100 - 129 mg/dl Borderline High 130 - 159 mg/dl High 160 - 189 mg/dl Very High above 190 mg/dl . 49 Triglyceride Risk Levels: Normal : <150 mg/dl Borderline : 150-199 mg/dl High : 200-499 mg/dl Very High : >500 mg/dl . 50 LDL/HDL Risk Ratio Levels MALE FEMALE 1/2 X Average 1.00 1.47 Average 3.55 3.22 2 X Average 6.25 5.03 3 X Average 7.99 6.14 . 51 CHOL/HDL Risk Ratio Levels MALE FEMALE 1/2 X Average 3.4 3.3 Average 5.0 4.4 2 X Average 9.5 7.0 3 X Average 24.0 11.0 . 52 FASTING; 2 SST TUBES 53 Cholesterol Risk Levels (NIH) Recommended: under 200 mg/dl Borderline : 200-239 mg/dl High Risk : Above 240 mg/dl . 54 The National Cholesterol Education Program recommends the following ranges for LDL Cholesterol: Optimal under 100 mg/dl Near or above Optimal 100 - 129 mg/dl Borderline High 130 - 159 mg/dl High 160 - 189 mg/dl Very High above 190 mg/dl . 55 Triglyceride Risk Levels: Normal : <150 mg/dl Borderline : 150-199 mg/dl High : 200-499 mg/dl Very High : >500 mg/dl . 56 LDL/HDL Risk Ratio Levels MALE FEMALE 1/2 X Average 1.00 1.47 Average 3.55 3.22 2 X Average 6.25 5.03 3 X Average 7.99 6.14 . 57 CHOL/HDL Risk Ratio Levels MALE FEMALE 1/2 X Average 3.4 3.3 Average 5.0 4.4 2 X Average 9.5 7.0 3 X Average 24.0 11.0 . 58 . hs-CRP Result (mg/L) Risk Level <1.0 Low 1.0-3.0 Average >3.0 High Patients with persistently unexplained, marked elevation of hs-CRP (greater than 10 mg/L) after repeated testing should be evaluated for non-cardiovascular etiologies. . 59 Cholesterol Risk Levels (NIH) Recommended: under 200 mg/dl Borderline : 200-239 mg/dl High Risk : Above 240 mg/dl . 60 LDL Cholesterol Risk Levels (NIH) Recommended: under 130 mg/dl Borderline: 131 - 159 mg/dl High Risk: above 160 mg/dl . 61 LDL/HDL Risk Ratio Levels MALE FEMALE 1/2 X Average 1.00 1.47 Average 3.55 3.22 2 X Average 6.25 5.03 3 X Average 7.99 6.14 . 62 CHOL/HDL Risk Ratio Levels MALE FEMALE 1/2 X Average 3.4 3.3 Average 5.0 4.4 2 X Average 9.5 7.0 3 X Average 24.0 11.0 . Procedures Date Code Description Status 06/02/2015 37461 Pulse Oximetry Completed 05/04/2015 37356157 Colonoscopy Completed 03/28/2010 30592 Pulse Oximetry Completed 11/06/2007 05388 Electrocardiogram Complete Completed Encounters Type Date Location Provider Dx Diagnosis Office Visit 07/29/2018 [facility] Ava Wagner, I25.10 Athscl heart 2:30p [place] disease of [place] coronary artery w/o ang pctrs Office Visit 08/02/2016 [facility] Dipesh Vaughan, Z00.01 Encounter for 4:00p [facility] general adult medical exam w abnormal findings I25.10 Athscl heart disease of [place] coronary artery w/o ang pctrs Z12.5 Encounter for screening for malignant neoplasm of prostate Z11.59 Encounter for screening for other viral diseases L98.9 Disorder of the skin and subcutaneous tissue, unspecified Z79.82 jail (current) use of aspirin Office Visit 06/02/2015 1:30p [facility] Dipesh Sainz J06.9 Acute upper [place] Vaughan respiratory infection, unspecified I25.10 Athscl heart disease of [place] coronary artery w/o ang pctrs Z12.5 Encounter for screening for malignant neoplasm of prostate Office Visit 01/11/2015 10:30a [facility] Dipesh Sainz I25.10 Athscl heart [place] Vaughan disease of [place] coronary artery w/o ang pctrs Office Visit 10/01/2014 3:50p Main Office Dipesh Sainz V70.0 Examination [facility] Vaughan General Medical Routine AT [facility] 414.00 Coronary Atherosclerosis Unspec Type Vessel [place]/Graft V76.51 Screening For Malignant Neoplasms Colon V76.44 Screening For Malig Dieudonne Prostate Office Visit 03/01/2012 10:30a [facility] Enmanuel Sainz 906.0 Wound Open Belt FixerClarence Vera Neck & Trunk Late Effect E003.1 Activities Involving Ice Hockey Office Visit 02/07/2012 Main Office [place] 110.5 Dermatophytosis Body 4:30p Madi Loco Office Visit 11/06/2011 [facility] Dipesh Sainz V70.0 Examination General 1:30p Office [facility] Vaughan Medical Routine AT [facility] Care Facility 726.33 Bursitis Olecranon 272.4 Hyperlipidemia Other Unspec Office Visit 03/28/2010 3:30p [facility] Dipesh Sainz 490 Bronchitis Acute Or [facility] Vaughan Chronic Not Spec Office Visit 02/23/2010 1:00p Main Office Will Viveros 466.0 Bronchitis Acute [place] [place] Office Visit 11/06/2007 11:00a [facility] Dipesh Sainz 272.4 Hyperlipidemia Other Clarence Vaughan Unspec 729.1 Myalgia & Myositis Unspec Office Visit 04/11/2005 Main Office Dipesh Sainz 272.0 Hypercholesterolemia Pure 1:10p [facility] Vaughan Office Visit 03/30/2005 Main Office Dipesh Sainz 272.0 Hypercholesterolemia Pure 2:00p [facility] Vaughan V17.4 History Family Chronic Cardiovascular Diseases Office Visit 01/02/2005 2:40p Main Office Edin Diehl, 493.90 Asthma Unspec W/O M.DVi Status Asthmaticus 466.0 Bronchitis Acute 461.9 Sinusitis Acute Unspec Office Visit 12/25/2002 6:20p Main Office Edin Diehl, 466.0 Bronchitis Acute M.D. 465.9 URI Upper Respiratory Infections Acute Unspec Sites 272.4 Hyperlipidemia Other Unspec Office Visit 07/15/2002 11:00a Main Office Garo Mora, 465.9 URI Upper M.D. Respiratory Infections Acute Unspec Sites Plan of Treatment 07/29/2018 - Ava Wagner, PAI25.10 Atherosclerotic heart disease of [place] coronary artery withComments:Continue medications as prescribed. Follow up with Dr. Love as scheduled the end of July. Annual physical examination this summer ( september or october) with Dr. Vaughan. Go to the ER with any chest pain or emergent symptoms such as trouble breathing.AllComments:PCMHMedication Management Patient Understands medications he's taking? Yes Are there Barriers to Adherence? No Has the patient been asked about herbal supplements and therapies, and OTC meds? Yes Care Plan1. Patient has been queried about patient's goals/preferences and functional/lifestyle goals at relevant visits. Yes If relevant, describe: N/A2. Treatment goals as explained to the patient: above3. Are there barriers to meeting treatment goals? No If Yes , please describe:4. Self-Management goals as described to the patient: Yes As always, we strongly encourage a healthy diet and making physical activity a part of your every day life. If you have questions about how or where to start, please contact the office.
[2018-08-12 23:00] LABS: ABS Eosinophils 0.3 10^3/ul (0-0.6); ABS Lymphocytes 2.1 10^3/ul (1.0-4.8); ABS Monocytes 0.3 10^3/ul (0-0.8); ABS Neutrophils 4.4 10^3/ul (1.5-7.7); Eosinophil % 4.2 %; Hematocrit 45 % (42-52); Hemoglobin 15.3 g/dL (14.0-18.0); Lymphocyte % 29.1 %; Mean Corpuscular HGB Conc 34 g/dL (31-36); Mean Corpuscular Hemoglobin 31 pg (27-31); Mean Corpuscular Volume 93 fL (80-94); Mean Platelet Volume 7.9 fL (7.4-10.4); Nucleated Red Blood Cells % 0.1; Platelet Count 191 10^3/uL (150-450); Red Blood Count 4.89 10^6 /uL (4.18-5.48); Red Cell Distribution Width 13 % (10.5-15); White Blood Count 7.2 10^3/uL (3.5-10.8)
[2018-08-12 23:10] LABS: INR 0.97 (0.82-1.09)
[2018-08-12 23:24] LABS: Albumin 4.4 g/dL (3.2-5.2); BUN/Creatinine Ratio 11.2 (8-20); Calcium 9.1 mg/dL (8.6-10.3); EGFR African American 86.8 (>60); EGFR Non-African American 71.8 (>60); Globulin 2.2 g/dL (2-4); Potassium 3.5 mmol/L (3.5-5.0); Total Bilirubin 0.4 mg/dL (0.2-1.0); Total Protein 6.6 g/dL (6.4-8.9)
[2018-08-12 23:26] LABS: Troponin I 0.01 ng/mL (<0.04)
--- NOTE | 2018-08-13 01:23 | ED ---
Shortness of Breath - HPI Summary HPI Summary: Patient states he was driving back from [place] today and complains of sudden onset feeling like he couldn't breathe deeply, bilateral intermittent mild chest tightness, diaphoresis, epigastric pain. Patient states he took Zantac 2 with some relief of epigastric pain. Denies fever, cough, sore throat , N/V/D, change in urine, change in BM. Medical history as HTN, angina, [place], [place] in 2003 with 2 stents placed. Patient states recent stress test 07/22[place]18 [place] [facility] [place] restarted on plavix and beta heber. States he played softball 2 days in a row while in [place] with no decrease in endurance, SOB or chest pain related to exertion. - History of Current Complaint Chief Complaint: EDShortnessOfBreath Time Seen by Provider: 08/13/18 00:06 Hx Obtained From: Patient Onset/Duration: Sudden Onset Current Severity: Mild Aggrevating Factors: Deep Breaths Alleviating Factors: Nothing Associated Signs & Symptoms: Negative - Allergy/Home Medications Allergies/Adverse Reactions: Allergies Allergy/AdvReac Type Severity Reaction Status Date / Time No Known Allergies Allergy Verified 08/12/18 22:15 PMH/Surg Hx/FS Hx/Imm Hx Endocrine/Hematology History: Denies: Hx Anticoagulant Therapy, Hx Blood Disorders, Hx Blood Transfusions, Hx Bone Marrow Disease, Hx Diabetes, Hx Systemic Lupus Erythematosus, Hx Sickle Cell Disease, Hx Thyroid Disease, Hx Anemia, Hx Unexplained Bleeding, Other Endocrine/Hematological Disorders Cardiovascular History: Reports: Hx Angina, Hx Angioplasty, Hx Coronary Artery Disease, Hx Deep Vein Thrombosis, Hx Hypercholesterolemia, Hx Hypertension - on meds, Hx Myocardial Infarction Denies: Hx Aneurysm, Hx Auto Implanted Cardiovert Defib, Hx Cardiac Arrest, Hx Cardiomegaly, Hx Congenital Heart Disease, Hx Congestive Heart Failure, Hx Embolism, Hx Hypotension, Hx Pacemaker/ICD, Hx Peripheral Vascular Disease, Hx Rheumatic Fever, Hx Syncope, Hx Valvular Heart Disease, Other Cardiovascular Problems/Disorders Respiratory History: Denies: Hx Asthma, Hx Chronic Bronchitis, Hx Chronic Obstructive Pulmonary Disease (COPD), Hx Cystic Fibrosis, Hx Lung Cancer, Hx Pleural Effusion, Hx Pneumonia, Hx Pulmonary Edema, Hx Pulmonary Embolism, Hx Seasonal Allergies, Hx Sleep Apnea, Other Respiratory Problems/Disorders GI History: Denies: Hx Cirrhosis, Hx Crohn's Disease, Hx Diverticulosis, Hx Gall Bladder Disease, Hx Gastroesophageal Reflux Disease, Hx Gastrointestinal Bleed, Hx Hiatal Hernia, Hx Irritable Bowel, Hx Jaundice, Hx Obstructive Bowel, Hx Ileostomy, Hx Pyloric Stenosis, Hx Ulcer, Other GI Disorders History: Denies: Hx Acute Renal Failure, Hx Benign Prostatic Hyperplasia, Hx Chronic Renal Failure, Hx Dialysis, Hx Kidney Infection, Hx Kidney Stones, Hx Renal Disease, Other Problems/Disorders Musculoskeletal History: Denies: Hx Arthritis, Hx Back Problems, Hx Bursitis, Hx Congenital Bone Abnormalities, Hx Fibromyalgia, Hx Gout, Hx Orthopedic Injury, Hx Osteoporosis, Hx Scoliosis, Hx Tendonitis, Other Musculoskeletal History Sensory History: Denies: Hx Cataracts, Hx Contacts or Glasses, Hx Eye Injury, Hx Eye Prosthesis, Hx Glaucoma, Hx Legally Blind, Hx Macular Degeneration, Hx Vision Problem, Hx Deafness, Hx Hearing Aid, Hx Hearing Problem, Other Sensory Impairments Opthamlomology History: Denies: Hx Cataracts, Hx Contacts or Glasses, Hx Eye Injury, Hx Eye Prosthesis, Hx Glaucoma, Hx Legally Blind, Hx Macular Degeneration, Hx Vision Problem, Other Sensory Impairments Neurological History: Denies: Hx Dementia, Hx Developmental Delay, Hx Headaches, Hx Migraine, Hx Nerve Disease, Hx Seizures, Hx Spinal Cord Injury, Hx Transient Ischemic Attacks (TIA), Other Neuro Impairments/Disorders Psychiatric History: Denies: Hx Anxiety, Hx Attention Deficit Hyperactivity Disorder, Hx Eating Disorder, Hx Depression, Hx Panic Disorder, Hx Post Traumatic Stress Disorder, Hx Inpatient Treatment, Hx Community Mental Health Tx, Hx Schizophrenia, Hx Bipolar Disorder, Hx Suicide Attempt, Hx of Violent Episodes Against Others, Hx Substance Abuse, Other Psychiatric Issues/Disorders - Surgical History Surgery Procedure, Year, and Place: 2 CARDIAC STENTS - 04/2013. Lt TIB/FIB - W/ [facility], 1990 Hx Anesthesia Reactions: No Infectious Disease History: No Infectious Disease History: Denies: Hx Clostridium Difficile, Hx Hepatitis, Hx Human Immunodeficiency Virus (HIV), Hx of Known/Suspected MRSA, Hx Shingles, Hx Tuberculosis, Hx Known/ Suspected VRE, Hx Known/Suspected VRSA, History Other Infectious Disease, Traveled Outside the [place] in Last 30 Days - Family History Known Family History: Positive: Cardiac Disease, Hypertension - Social History Alcohol Use: Occasionally Alcohol Amount: 10 per week Substance Use Type: Reports: None Smoking Status (MU): Never Smoked Tobacco Review of Systems Constitutional: Negative Eyes: Negative ENT: Negative Positive: Other Positive: Shortness Of Breath Gastrointestinal: Negative Genitourinary: Negative Musculoskeletal: Negative Skin: Negative Neurological: Negative Psychological: Normal All Other Systems Reviewed And Are Negative: Yes Physical Exam - Summary Physical Exam Summary: Chest pain not reproducible. Lung sounds clear to auscultation bilaterally. RRR. Abdomen soft nontender. No peripheral edema bilaterally. No unilateral leg swelling, erythema. Bilateral calves are soft nontender. Triage Information Reviewed: Yes Vital Signs On Initial Exam: Initial Vitals Temp Pulse Resp BP Pulse Ox 98.3 F 60 16 130/93 96 08/12/18 22:13 08/12/18 22:13 08/12/18 22:13 08/12/18 22:13 08/12/18 22:13 Vital Signs Reviewed: Yes Appearance: Positive: Well-Appearing Skin: Positive: Warm Head/Face: Positive: Normal Head/Face Inspection Eyes: Positive: Normal Neck: Positive: Supple Respiratory/Lung Sounds: Positive: Clear to Auscultation Cardiovascular: Positive: Normal Abdomen Description: Positive: Nontender Musculoskeletal: Positive: Normal Neurological: Positive: Normal Psychiatric: Positive: Normal AVPU Assessment: Alert - Ynes Coma Scale Best Eye Response: 4 - Spontaneous Best Motor Response: 6 - Obeys Commands Best Verbal Response: 5 - Oriented Coma Scale Total: 15 Diagnostics - Vital Signs Vital Signs Temp Pulse Resp BP Pulse Ox 08/13/18 00:07 57 13 124/91 97 08/13/18 00:06 58 13 95 08/12/18 22:13 98.3 F 60 16 130/93 96 - Laboratory Lab Results: Lab Results 08/12/18 08/12/18 08/12/18 Range/Units 22:50 22:50 22:50 WBC 7.2 (3.5-10.8) 10^3/uL RBC 4.89 (4.18-5.48) 10^6 /uL Hgb 15.3 (14.0-18.0) g/dL Hct 45 (42-52) % MCV 93 (80-94) fL MCH 31 (27-31) pg MCHC 34 (31-36) g/dL RDW 13 (10.5-15) % Plt Count 191 (150-450) 10^3/uL MPV 7.9 (7.4-10.4) fL Neut % (Auto) 61.3 % Lymph % (Auto) 29.1 % [place] % (Auto) 4.8 % Eos % (Auto) 4.2 % Baso % (Auto) 0.6 % Absolute Neuts (auto) 4.4 (1.5-7.7) 10^3/ul Absolute Lymphs (auto) 2.1 (1.0-4.8) 10^3/ul Absolute Monos (auto) 0.3 (0-0.8) 10^3/ul Absolute Eos (auto) 0.3 (0-0.6) 10^3/ul Absolute Basos (auto) 0.0 (0-0.2) 10^3/ul Absolute Nucleated RBC 0.0 10^3/ul Nucleated RBC % 0.1 INR (Anticoag Therapy) 0.97 (0.82-1.09) D-Dimer, Quantitative < 200 (Less Than 230) ng/mL Sodium 139 (135-145) mmol/L Potassium 3.5 (3.5-5.0) mmol/L Chloride 104 (101-111) mmol/L Carbon Dioxide 27 (22-32) mmol/L Anion Gap 8 (2-11) mmol/L BUN 12 (6-24) mg/dL Creatinine 1.07 (0.67-1.17) mg/dL Est GFR ( Amer) 86.8 (>60) Est GFR (Non-Af Amer) 71.8 (>60) BUN/Creatinine Ratio 11.2 (8-20) Glucose 142 H (70-100) mg/dL Lactic Acid (0.5-2.0) mmol/L Calcium 9.1 (8.6-10.3) mg/dL Total Bilirubin 0.40 (0.2-1.0) mg/dL AST 24 (13-39) U/L ALT 35 (7-52) U/L Alkaline Phosphatase 54 (34-104) U/L Troponin I 0.01 (<0.04) ng/mL B-Natriuretic Peptide (<=100) pg/mL Total Protein 6.6 (6.4-8.9) g/dL Albumin 4.4 (3.2-5.2) g/dL Globulin 2.2 (2-4) g/dL Albumin/Globulin Ratio 2.0 (1-3) 08/12/18 08/12/18 Range/Units 22:50 22:50 WBC (3.5-10.8) 10^3/uL RBC (4.18-5.48) 10^6 /uL Hgb (14.0-18.0) g/dL Hct (42-52) % MCV (80-94) fL MCH (27-31) pg MCHC (31-36) g/dL RDW (10.5-15) % Plt Count (150-450) 10^3/uL MPV (7.4-10.4) fL Neut % (Auto) % Lymph % (Auto) % [place] % (Auto) % Eos % (Auto) % Baso % (Auto) % Absolute Neuts (auto) (1.5-7.7) 10^3/ul Absolute Lymphs (auto) (1.0-4.8) 10^3/ul Absolute Monos (auto) (0-0.8) 10^3/ul Absolute Eos (auto) (0-0.6) 10^3/ul Absolute Basos (auto) (0-0.2) 10^3/ul Absolute Nucleated RBC 10^3/ul Nucleated RBC % INR (Anticoag Therapy) (0.82-1.09) D-Dimer, Quantitative (Less Than 230) ng/mL Sodium (135-145) mmol/L Potassium (3.5-5.0) mmol/L Chloride (101-111) mmol/L Carbon Dioxide (22-32) mmol/L Anion Gap (2-11) mmol/L BUN (6-24) mg/dL Creatinine (0.67-1.17) mg/dL Est GFR ( Amer) (>60) Est GFR (Non-Af Amer) (>60) BUN/Creatinine Ratio (8-20) Glucose (70-100) mg/dL Lactic Acid 1.3 (0.5-2.0) mmol/L Calcium (8.6-10.3) mg/dL Total Bilirubin (0.2-1.0) mg/dL AST (13-39) U/L ALT (7-52) U/L Alkaline Phosphatase (34-104) U/L Troponin I (<0.04) ng/mL B-Natriuretic Peptide 24 (<=100) pg/mL Total Protein (6.4-8.9) g/dL Albumin (3.2-5.2) g/dL Globulin (2-4) g/dL Albumin/Globulin Ratio (1-3) Result Diagrams: 08/12/18 22:50 08/12/18 22:50 Lab Statement: Any lab studies that have been ordered have been reviewed, and results considered in the medical decision making process. Course/Dx - Course Course Of Treatment: Patient states he was driving back from [place] today and complains of sudden onset feeling like he couldn't breathe deeply, bilateral intermittent mild chest tightness, diaphoresis, epigastric pain. Patient states he took Zantac 2 with some relief of epigastric pain. Denies fever, cough, sore throat, N/V/D, change in urine, change in BM. Medical history as HTN, angina, [place], [place] in 2003 with 2 stents placed. Patient states recent stress test 07/22[place]18 [place] [facility] [place] restarted on plavix and beta heber. States he played softball 2 days in a row while in [place] with no decrease in endurance, SOB or chest pain related to exertion. Physical exam: Chest pain not reproducible. Lung sounds clear to auscultation bilaterally. RRR. Abdomen soft nontender. No peripheral edema bilaterally. No unilateral leg swelling, erythema. Bilateral calves are soft nontender. Vital signs within normal limits. Labs unremarkable. D-dimer negative. Serial troponins normal. EKG sinus rhythm, consistent with prior EKG 1 month ago. Chest x-ray negative for acute process. Patient advised to follow-up with his noc engineer Dr. Love tomorrow morning for further evaluation. Patient understands and approves of plan. - Diagnoses Provider Diagnoses: Shortness of breath, Chest tightness Discharge - Sign-Out/Discharge Documenting (check all that apply): Patient Departure Patient Received Moderate/Deep Sedation with Procedure: No - Discharge Plan Condition: Stable Disposition: HOME Patient Education Materials: Shortness of Breath (ED) Referrals: Dipesh Vaughan MD [Primary Care Provider] - Additional Instructions: Follow-up with primary care and your noc engineer Dr. Love tomorrow for further evaluation. Return to the ED for any new or worsening symptoms. - Billing Disposition and Condition Condition: STABLE Disposition: Home
[2018-08-13 01:39] VITALS: BP 113/78
== END 2018-08-13 02:00 | disposition home or self-care (01) ==
LOC: ED 22:09
DX: R06.02 Shortness of breath (principal); R07.89 Other chest pain; I10 Essential (primary) hypertension; I25.2 Old myocardial infarction; Z86.718 Personal history of other venous thrombosis and embolism; I25.10 Atherosclerotic heart disease of native coronary artery without angina pectoris; E78.00 Pure hypercholesterolemia, unspecified; E78.5 Hyperlipidemia, unspecified; Z79.82 Long term (current) use of aspirin
CPT/HCPCS: 36415; 71045; 80053; 83605; 83880; 84484; 85025; 85379; 85610; 93005; 99283

== ENCOUNTER → 2018-09-03 08:29 | Day surgery (SDC) | payer BC ==
[~2018-09-03 08:29] MED LIST changes: +Acetaminophen TAB* 325 MG PO PRN; -Buffered Lidocaine 0.9% SYRIN* 5 ML/SYR SYRINGE INTRADERM ONE; +Diazepam TAB(*) 5 MG ONE; +Heparin 2 UNITS/ML IVPREMIX* 3,000 UNIT/1,500 ML BAG IV ONE; +Heparin(*) 1000 UNIT/ML 10 ML VIAL CATH LAB IV ONE; +Iohexol 350 (CONTRAST) 200 ML MDV IV ONE; +Lidocaine 1% INJ* 10 MG/ML 30 ML SDV ONE; +Midazolam* 1 MG/ML 5 ML VIAL (5 MG) ONE; +NS 0.9% 1000 ML** 1,000 ML IV SCH; +VERAPAMIL 2.5 MG/ML 2 ML VIAL ** 5 mg/2 ml ONE; +diPHENhydraMINE PO* 25 MG ONE; +fentaNYL* 50 MCG/ML 2 ML VIAL (100 MCG VIAL) ONE; +nitroGLYCERIN DRIP* 25,000 MCG/250 ML BTL ONE
[2018-09-03 12:26] VITALS: BP 117/74
--- NOTE | 2018-09-03 23:00 | CATH ---
CC: Dipesh Vaughan MD * CARDIAC CATHETERIZATION: DATE OF PROCEDURE: 09/03/18 - [facility] CATH PROCEDURES: Cardiac catheterization including left heart catheterization, left ventriculogram coronary angiography. INDICATION: Coronary artery disease, recorded angina. HISTORY OF PRESENT ILLNESS: The patient is a 53-year-old gentleman with a history of an anterior wall myocardial infarction in 2016. At that time he had 2 stents placed to his LAD. The patient was admitted to the hospital a month ago with an episode of chest pain with significant exertion. He was admitted to the hospital. His EKG showed minor T-wave changes. His peak troponin level was 0.4. His stress test at that time showed potential for inferior wall ischemia. The patient was treated medically with beta blockers, dual anti- platelets with aspirin and Plavix. The patient had a recurrent episode of chest pain a week later. I had seen the patient in consultation and decided to proceed with cardiac catheterization. DESCRIPTION OF PROCEDURE: The patient was brought to the procedure room in a fasting state. Informed consent had been obtained prior to the procedure. All labs were reviewed. The patient was placed supine on the procedure table. His right radial area was prepped and draped in the usual fashion. Lidocaine 1% was used for local anesthesia. The radial artery was then entered via Seldinger technique and an guidewire was placed and the guidewire was placed. Over the guidewire, a 6-Irish sheath introducer was placed. The patient underwent coronary angiography and left ventriculogram using a 6-Irish TIG catheter. A 5-Irish AR1 catheter and a 5-Irish pigtail catheter. At the end of the procedure, all sheaths and catheters were removed. The patient tolerated the procedure well without complication. A total of 85 cc of Omnipaque dye was used. A total of 6.9 minutes of fluoro time was used. The patient had a radial infusion in his catheter of heparin, verapamil and nitroglycerine. FINDINGS: Central aortic blood pressure 98/66 with the mean of 82, left ventricular pressure of 102/21, with an end diastolic pressure of 22. CORONARY ARTERIES: Left main: The left main artery was normal in size. It bifurcated into the LAD and circumflex. There was no evidence of stenosis. Left anterior descending artery: The LAD was normal in size. It gave off 1 large diagonal vessel. The proximal LAD is normal, but distal LAD is normal. There is a stent in the midportion of the LAD. The very proximal portion of the LAD stent has some evidence of scar formation and restenosis. It is mild degree, less than 25%. The remainder of the LAD and diagonal vessels are without disease. Left circumflex artery: The circumflex artery was a large dominant vessel, giving off 2 obtuse marginal branches and a PDA. There was no evidence of stenosis. Right coronary artery: The RCA was a large dominant vessel, giving off PDA and 1 posterolateral branch. There is mild diffuse disease of the right coronary artery. There is DEDRA-2 flow of the right coronary artery. There are no critical stenosis. Left ventriculogram: The left ventricle was normal in size. Overall, systolic function and left ventricle is low normal. There is mild hypokinesis of the anterior wall. Estimated ejection fraction 50% to 55%. There is no mitral regurgitation. Aortic valve and ascending aorta are normal. IMPRESSION: 1. Stent to the LAD is open and patent. There is mild restenosis of the proximal portion of the LAD stent. 2. Mild diffuse disease of the right coronary artery with DEDRA-2 flow. 3. Normal LV function with mild anterior wall hypokinesis. RECOMMENDATION: The patient will continue on maximum medical therapy. The patient will continue on dual antiplatelet therapy for 4 to 6 months. [id number]/CPS #: [id number] [facility]ITAL[facility]ik
== END | disposition home or self-care (01) ==
LOC: CHICATH 08:29
PROVIDERS: ATTEND Specialist
DX: I25.119 Atherosclerotic heart disease of native coronary artery with unspecified angina pectoris (principal); Z79.01 Long term (current) use of anticoagulants; I10 Essential (primary) hypertension; E78.5 Hyperlipidemia, unspecified; I25.2 Old myocardial infarction
CPT/HCPCS: 93458; 99156; 99157; A9270-GY; J1644; J2250; J3010

== ENCOUNTER 2018-12-31 11:46 | Emergency (ER) | payer BC ==
--- NOTE | 2018-12-31 12:01 | ED ---
HPI Chest Pain - HPI Summary HPI Summary: The patient is a 53 y/o M presenting to [facility] with a chief complaint of sudden onset left anterior chest discomfort with a pain between the shoulders this morning. He reports he was at work at rest when the pain started. The pain in his back is described as a knot. He additionally c/o shortness of breath and diaphoresis. He denies any nausea, vomiting, or dizziness. Currently, his symptoms are rated 2/10 in severity. He notes that the pain in his back is similar to when he had a VT in 2013, after which he had two stents placed, and he recently had a cardiac catherization over the summer which was negative. 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 PMHx: angina, angioplast, CAD, DVT, HLD, HTN, VT with stents 5 years ago. FHx: cardiac disease, HTN. Nonsmoker, occasionally EtOH , no substance use. Medications reviewed. Allergies noted. - History of Current Complaint Hx Obtained From: Patient Onset/Duration: Started Minutes Ago, Still Present Timing: Lasting Minutes Initial Severity: Moderate Current Severity: Mild Pain Intensity: 2 Pain Scale Used: 0-10 Numeric Chest Pain Location: Lower Sternal Chest Pain Radiates: Yes Chest Pain Radiates To:: Back - between shoulders Character: Other: - discomfort Aggravating Factor(s): Nothing Alleviating Factor(s): Nothing Associated Signs and Symptoms: Positive: Chest Pain - discomfort, Shortness of Breath, Back Pain. Negative: Dizziness, Nausea, Vomiting - Additional Pertinent History Primary Care Physician: [id number] - Allergy/Home Medications Allergies/Adverse Reactions: Allergies Allergy/AdvReac Type Severity Reaction Status Date / Time No Known Allergies Allergy Verified 12/31/18 12:17 PMH/Surg Hx/FS Hx/Imm Hx Endocrine/Hematology History: Denies: Hx Anticoagulant Therapy, Hx Blood Disorders, Hx Blood Transfusions, Hx Bone Marrow Disease, Hx Diabetes, Hx Systemic Lupus Erythematosus, Hx Sickle Cell Disease, Hx Thyroid Disease, Hx Anemia, Hx Unexplained Bleeding, Other Endocrine/Hematological Disorders Cardiovascular History: Reports: Hx Angina, Hx Angioplasty, Hx Coronary Artery Disease, Hx Deep Vein Thrombosis, Hx Hypercholesterolemia, Hx Hypertension - on meds, Hx Myocardial Infarction Denies: Hx Aneurysm, Hx Auto Implanted Cardiovert Defib, Hx Cardiac Arrest, Hx Cardiomegaly, Hx Congenital Heart Disease, Hx Congestive Heart Failure, Hx Embolism, Hx Hypotension, Hx Pacemaker/ICD, Hx Peripheral Vascular Disease, Hx Rheumatic Fever, Hx Syncope, Hx Valvular Heart Disease, Other Cardiovascular Problems/Disorders Respiratory History: Denies: Hx Asthma, Hx Chronic Bronchitis, Hx Chronic Obstructive Pulmonary Disease (COPD), Hx Cystic Fibrosis, Hx Lung Cancer, Hx Pleural Effusion, Hx Pneumonia, Hx Pulmonary Edema, Hx Pulmonary Embolism, Hx Seasonal Allergies, Hx Sleep Apnea, Other Respiratory Problems/Disorders GI History: Denies: Hx Cirrhosis, Hx Crohn's Disease, Hx Diverticulosis, Hx Gall Bladder Disease, Hx Gastroesophageal Reflux Disease, Hx Gastrointestinal Bleed, Hx Hiatal Hernia, Hx Irritable Bowel, Hx Jaundice, Hx Obstructive Bowel, Hx Ileostomy, Hx Pyloric Stenosis, Hx Ulcer, Other GI Disorders History: Denies: Hx Acute Renal Failure, Hx Benign Prostatic Hyperplasia, Hx Chronic Renal Failure, Hx Dialysis, Hx Kidney Infection, Hx Kidney Stones, Hx Renal Disease, Other Problems/Disorders Musculoskeletal History: Denies: Hx Arthritis, Hx Back Problems, Hx Bursitis, Hx Congenital Bone Abnormalities, Hx Fibromyalgia, Hx Gout, Hx Orthopedic Injury, Hx Osteoporosis, Hx Scoliosis, Hx Tendonitis, Other Musculoskeletal History Sensory History: Denies: Hx Cataracts, Hx Contacts or Glasses, Hx Eye Injury, Hx Eye Prosthesis, Hx Glaucoma, Hx Legally Blind, Hx Macular Degeneration, Hx Vision Problem, Hx Deafness, Hx Hearing Aid, Hx Hearing Problem, Other Sensory Impairments Opthamlomology History: Denies: Hx Cataracts, Hx Contacts or Glasses, Hx Eye Injury, Hx Eye Prosthesis, Hx Glaucoma, Hx Legally Blind, Hx Macular Degeneration, Hx Vision Problem, Other Sensory Impairments Neurological History: Denies: Hx Dementia, Hx Developmental Delay, Hx Headaches, Hx Migraine, Hx Nerve Disease, Hx Seizures, Hx Spinal Cord Injury, Hx Transient Ischemic Attacks (TIA), Other Neuro Impairments/Disorders Psychiatric History: Denies: Hx Anxiety, Hx Attention Deficit Hyperactivity Disorder, Hx Eating Disorder, Hx Depression, Hx Panic Disorder, Hx Post Traumatic Stress Disorder, Hx Inpatient Treatment, Hx Community Mental Health Tx, Hx Schizophrenia, Hx Bipolar Disorder, Hx Suicide Attempt, Hx of Violent Episodes Against Others, Hx Substance Abuse, Other Psychiatric Issues/Disorders - Surgical History Surgical History: Yes Surgery Procedure, Year, and Place: 2 CARDIAC STENTS - 04/2013. Lt TIB/FIB - W/ [facility], 1990 Hx Anesthesia Reactions: No Infectious Disease History: Denies: Hx Clostridium Difficile, Hx Hepatitis, Hx Human Immunodeficiency Virus (HIV), Hx of Known/Suspected MRSA, Hx Shingles, Hx Tuberculosis, Hx Known/ Suspected VRE, Hx Known/Suspected VRSA, History Other Infectious Disease - Family History Known Family History: Positive: Cardiac Disease, Hypertension - Social History Alcohol Use: Occasionally Alcohol Amount: 10 per week Hx Substance Use: No Substance Use Type: Reports: None Hx Tobacco Use: No Smoking Status (MU): Never Smoked Tobacco Review of Systems Positive: Skin Diaphoresis Positive: Chest Pain - mild discomfort left anterior Positive: Shortness Of Breath Negative: Vomiting, Nausea Positive: Other - pain between shoulders Neurological: Other - Negative: dizziness. All Other Systems Reviewed And Are Negative: Yes Physical Exam - Summary Physical Exam Summary: VITAL SIGNS: Reviewed. GENERAL: Patient is a well-developed and nourished male who is lying comfortable in the stretcher. Patient is not in any acute respiratory distress. HEAD AND FACE: No signs of trauma. No ecchymosis, hematomas or skull depressions. No sinus tenderness. EYES: PERRLA, EOMI x 2, No injected conjunctiva, no nystagmus. EARS: Hearing grossly intact. Ear canals and tympanic membranes are within normal limits. MOUTH: Oropharynx within normal limits. NECK: Supple, trachea is midline, no adenopathy, no JVD, no carotid bruit, no c- spine tenderness, neck with full ROM. CHEST: Symmetric, no tenderness at palpation. LUNGS: Clear to auscultation bilaterally. No wheezing or crackles. CVS: Regular rate and rhythm, S1 and S2 present, no murmurs or gallops appreciated. ABDOMEN: Soft, non-tender. No signs of distention. No rebound, no guarding, and no masses palpated. Bowel sounds are normal. EXTREMITIES: FROM in all major joints, no edema, no cyanosis or clubbing. NEURO: Alert and oriented x 3. No acute neurological deficits. Speech is normal and follows commands. SKIN: Dry and warm. Triage Information Reviewed: Yes Vital Signs Reviewed: Yes Procedures - Sedation Patient Received Moderate/Deep Sedation with Procedure: No Diagnostics - Laboratory Result Diagrams: 12/31/18 12:03 12/31/18 12:03 Lab Statement: Any lab studies that have been ordered have been reviewed, and results considered in the medical decision making process. - Radiology Chest X-Ray Radiology Interpretation Completed By: Radiologist Summary of Radiographic Findings: Impression: No active cardiopulmonary disease. ED physician has reviewed this report. - EKG 1146 Cardiac Rate: Bradycardia - 55 bpm EKG Rhythm: Sinus Bradycardia EKG Comparison: No Significant Change - Similar to previous on 08/12/18. Summary of EKG Findings: EKG at 1146 reveals sinus bradycardia at [address] elevations. ED physician has reviewed and interpreted this EKG. Re-Evaluation - Re-Evaluation First Eval Re-Evaluation Time: 15:40 Change: Improved Comment: His pain has gotten better. We discussed all results and plan for discharge. Chest Pain Course/Dx - Course Assessment/Plan: Patient is a 53 y/o M who has history of VT in 2013 with stent placement with a chief complaint of sudden onset of left anterior chest discomfort with a pain between the shoulder blades, which he notes is similar to his VT. Additionally c/o diaphoresis. Denies any nausea, vomiting, or dizziness. Blood work without any significant abnormality except for total creatine kinase of 358. Two troponins 4 hours apart are 0.01. EKG shows no ST elevations. Chest x-ray shows no acute pathology. The heart score is equal to 1. Therefore, I have no suspicion for an acute coronary syndrome. The patients pain has resolved and is not present. The patient also reports that he had a stress test in October, and it was negative. I discussed all the findings and test results with the patient. Patient was instructed to return to the emergency room immediately if any of the symptoms return worsens. Plan of care was discussed with the patient and understands and agrees. All questions were answered at patient satisfaction. There were no further complaints or concerns. Lung exam before discharge: CTA B/L. Good air exchange. No wheezing or crackles heard. CVS: S1 and S2 present. No murmurs appreciated. Patient is alert and oriented x 3. Patient is hemodynamically stable. Patient will be discharged home with follow up PCP in the next 2-3 days. - Diagnoses Provider Diagnoses: Atypical chest pain Discharge ED - Sign-Out/Discharge Documenting (check all that apply): Patient Departure - Patient will be discharged home. - Discharge Plan Condition: Stable Disposition: HOME Patient Education Materials: Chest Pain (DC) Referrals: Dipesh Vaughan MD [Primary Care Provider] - 3 Days Additional Instructions: Follow up with your primary care provider in 2-3 days. Return to the emergency department for any new or worsening symptoms. - Billing Disposition and Condition Condition: STABLE Disposition: Home - Attestation Statements Document Initiated by Ashu: Yes Documenting Scribe: Katie Calle Provider For Whom Ashu is Documenting (Include Credential): Dr. Derrick Brown MD Scribe Attestation: Katie Palmer scribed for Dr. Derrick Brown MD on 12/31/18 at 1853. Scribe Documentation Reviewed: Yes Provider Attestation: The documentation as recorded by the Katie baum accurately reflects the service I personally performed and the decisions made by me, Dr. Derrick Brown MD Status of Scribe Document: Ready
[2018-12-31 12:09] LABS: ABS Eosinophils 0.2 10^3/ul (0-0.6); ABS Lymphocytes 1.8 10^3/ul (1.0-4.8); ABS Monocytes 0.6 10^3/ul (0-0.8); ABS Neutrophils 3.7 10^3/ul (1.5-7.7); Eosinophil % 3.7 %; Hematocrit 47 % (42-52); Lymphocyte % 28.7 %; Mean Corpuscular HGB Conc 34 g/dL (31-36); Mean Corpuscular Hemoglobin 31 pg (27-31); Mean Corpuscular Volume 93 fL (80-94); Mean Platelet Volume 7.6 fL (7.4-10.4); Platelet Count 227 10^3/uL (150-450); Red Cell Distribution Width 13 % (10-15); White Blood Count 6.4 10^3/uL (3.5-10.8)
[2018-12-31] MEDS: Aspirin 81 mg CHEW TAB* 81 MG TAB.CHEW PO ONE (12:18)
[2018-12-31] MEDS: Ondansetron INJ* 2 MG/ML VIAL IV ONE (12:18)
[2018-12-31 12:29] LABS: Troponin I 0.01 ng/mL (<0.04)
[2018-12-31 12:30] LABS: Albumin 4.8 g/dL (3.2-5.2); Albumin/Globulin Ratio 2.2 (1-3); BUN/Creatinine Ratio 12.5 (8-20); Calcium 9.8 mg/dL (8.6-10.3); EGFR African American 89.7 (>60); EGFR Non-African American 74.1 (>60); Globulin 2.2 g/dL (2-4); Potassium 4.4 mmol/L (3.5-5.0); Total Bilirubin 0.6 mg/dL (0.2-1.0)
[2018-12-31 12:31] LABS: CKMB ng/mL 5.7 ng/mL (0.6-6.3)
[2018-12-31 12:58] LABS: TSH (Thyroid Stimulating Horm) 2.15 mcIU/mL (0.34-5.60)
[2018-12-31 13:06] LABS: Urine Appearance Clear; Urine Bilirubin Negative (Negative); Urine Blood Negative (Negative); Urine Color Yellow; Urine Glucose Negative (Negative); Urine Ketones Negative (Negative); Urine Nitrite Negative (Negative); Urine Protein Negative (Negative); Urine Specific Gravity 1.011 (1.010-1.030); Urine Urobilinogen Negative (Negative)
[2018-12-31 15:47] VITALS: BP 129/79
== END 2018-12-31 15:50 | disposition home or self-care (01) ==
LOC: ED 11:46
DX: R07.89 Other chest pain (principal); R06.02 Shortness of breath; I25.10 Atherosclerotic heart disease of native coronary artery without angina pectoris; E78.00 Pure hypercholesterolemia, unspecified; I10 Essential (primary) hypertension; I25.2 Old myocardial infarction; Z95.5 Presence of coronary angioplasty implant and graft; Z86.718 Personal history of other venous thrombosis and embolism; Z79.01 Long term (current) use of anticoagulants; Z79.82 Long term (current) use of aspirin; Z79.899 Other long term (current) drug therapy
CPT/HCPCS: 36415; 71046; 80053; 81003; 82550; 82553; 83605; 83735; 83880; 84443; 84484; 85025; 85730; 93005; 96374; 99283; A9270-GY

== ENCOUNTER 2021-01-21 13:05 | Observation (INO) ==
[2021-01-21 13:41] LABS: ABS Eosinophils 0.2 10^3/ul (0-0.6); ABS Lymphocytes 1.6 10^3/ul (1.0-4.8); ABS Monocytes 0.6 10^3/ul (0-0.8); ABS Neutrophils 4.7 10^3/ul (1.5-7.7); Hematocrit 46 % (42-52); Hemoglobin 15.9 g/dL (14.0-18.0); Lymphocyte % 22.6 %; Mean Corpuscular HGB Conc 34 g/dL (31-36); Mean Corpuscular Hemoglobin 32 pg (27-31); Mean Corpuscular Volume 93 fL (80-94); Mean Platelet Volume 7.6 fL (7.4-10.4); Platelet Count 200 10^3/uL (150-450); Red Blood Count 4.95 10^6 /uL (4.18-5.48); Red Cell Distribution Width 13 % (10-15); White Blood Count 7.2 10^3/uL (3.5-10.8)
[2021-01-21 13:53] LABS: INR 1.03 (0.86-1.15)
[2021-01-21 13:59] LABS: Albumin 4.3 g/dL (3.2-5.2); Albumin/Globulin Ratio 1.9 (1-3); Calcium 9.2 mg/dL (8.6-10.3); Globulin 2.3 g/dL (2-4); Potassium 3.8 mmol/L (3.5-5.0); Total Bilirubin 0.4 mg/dL (0.2-1.0); Total Protein 6.6 g/dL (6.4-8.9)
[2021-01-21 14:01] LABS: Troponin I 0.01 ng/mL (<0.03)
[2021-01-21 16:37] LABS: Troponin I 0.07 ng/mL (<0.03)
[2021-01-21 17:30] LABS: Rapid COVID-19 Molecular Undetected (Undetected)
[2021-01-21] MEDS ORDERED: Heparin DRIP 25,000 UNITS BAG 25,000 UNITS/500 ML BAG IV SCH (18:15)
[2021-01-21] MEDS ORDERED: Heparin 5000 UNITS/ML 1 mL VIAL IV SCH (19:00)
[2021-01-21 20:13] LABS: Troponin I 0.24 ng/mL (<0.03)
[2021-01-22 04:46] LABS: Troponin I 0.23 ng/mL (<0.03)
[2021-01-22] MEDS: Aspirin EC 81 mg TAB.EC (enteric coated) PO SCH ×2 (11:01→11:34)
[2021-01-22 12:08] LABS: ABS Eosinophils 0.2 10^3/ul (0-0.6); ABS Lymphocytes 1.4 10^3/ul (1.0-4.8); ABS Monocytes 0.5 10^3/ul (0-0.8); Eosinophil % 2.6 %; Hematocrit 47 % (42-52); Hemoglobin 15.8 g/dL (14.0-18.0); Lymphocyte % 23.6 %; Mean Corpuscular HGB Conc 34 g/dL (31-36); Mean Corpuscular Hemoglobin 32 pg (27-31); Mean Corpuscular Volume 94 fL (80-94); Mean Platelet Volume 7.6 fL (7.4-10.4); Platelet Count 196 10^3/uL (150-450); Red Blood Count 4.95 10^6 /uL (4.18-5.48); Red Cell Distribution Width 13 % (10-15); White Blood Count 6.1 10^3/uL (3.5-10.8)
[2021-01-22 12:28] LABS: INR 1.08 (0.86-1.15)
[2021-01-22 12:31] LABS: Calcium 9.4 mg/dL (8.6-10.3)
[2021-01-23] MEDS: Aspirin EC 81 mg TAB.EC (enteric coated) PO SCH (10:14)
[2021-01-23] MEDS ORDERED: Perflutren Lipid Microsphere 3 ML VIAL ONE (12:24)
[2021-01-24] MEDS ORDERED: diPHENhydraMINE 25 mg TAB PO PRN (06:00)
[2021-01-24] MEDS: Aspirin EC 81 mg TAB.EC (enteric coated) PO SCH (09:19)
[2021-01-24] MEDS ORDERED: nitroGLYCERIN DRIP 25,000 MCG/250 ML BTL ONE (12:27)
[2021-01-24] MEDS ORDERED: fentaNYL 100 mcg/2 ml 50 MCG/ML VIAL ONE (12:27)
[2021-01-24] MEDS ORDERED: VERAPAMIL 2.5 MG/ML 2 ML VIAL ** 5 mg/2 ml ONE (12:27)
[2021-01-24] MEDS ORDERED: Heparin 2 UNITS/ML 1000 mls 3,000 ML IV ONE (12:27)
[2021-01-24] MEDS ORDERED: Heparin 1,000 UNIT/ML 10 ml (10,000 UNITS) CATHLAB/DIALYSIS ONE (12:27)
[2021-01-24] MEDS ORDERED: Midazolam 5 mg/5 ml VIAL 1 mg/ml 5 ml VIAL (5 mg) ONE (12:27)
[2021-01-24] MEDS ORDERED: Iohexol 350 (CONTRAST) 200 ML MDV IV ONE (12:28)
[2021-01-24] MEDS ORDERED: Lidocaine 1% VIAL 10 MG/ML VIAL ONE (12:28)
[2021-01-24 18:37] VITALS: BP 115/76
== END 2021-01-24 19:00 | disposition home or self-care (01) ==
LOC: MEDTELE 13:05 → ED 13:05 → SUATTDRO 18:44 → MEDTELE 01-22 00:30
PROVIDERS: ADMIT Internal Medicine; ATTEND Hospitalist